=== PATIENT | male | born 1975 | race Caucasian/White ===

== ENCOUNTER 2019-10-30 12:48 | Emergency (ER) | payer MEDICAID, MEDICARE ==
[~2019-10-30] VITALS: Ht 190.6 cm; Wt 83.9 kg
[~2019-10-30 12:48] MED LIST: BACL10TA PO; CITA10TA70 PO; CYAN100T PO; QTP200T PO
--- NOTE | 2019-10-30 13:25 | NUR ---
This RN received report from ADARSH Corrales at this time
[2019-10-30] MEDS ORDERED: CEPHALEXIN 250 MG (KEFLEX) CAP PO ONE (13:30)
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
[2019-10-30] MEDS ORDERED: CEPH500T PO (13:35)
[2019-10-30] MEDS ORDERED: TRM50T PO (13:35)
--- NOTE | 2019-10-30 13:40 | NUR ---
Patient discharged at this time. No complaints at time of departure.
[2019-10-30 13:45] VITALS: BP 150/89
--- OUTSIDE RECORDS SUMMARY | 2019-10-30 14:25 | XMS REPORT | CCD ---
Author Author DELONTE LUJAN Organization Unknown Address [address] [place] [address] Care Team Providers Care Manager Contracting Name Role Phone ALICIA PALUMBO, DEV LE Attphys SAILAJA PALUMBO, AMARILYS Flemingsurchina A., REJI L NASST M., MALACHI NASST B., JOSE NASST S., ENEIDA NASST K., BETH NASST S., DOLORES Navarro NASST R., DAWSON NASST S., REJI NASST R., YASMIN Barbosa NASST A., KIRBY NOWAK NASST D., DONNY Briones NASST F., RADHA NASST D., KRISTIAN Keith NASST B., DA NASST W., SAMIRA NASST L., KATHIE NASST M., OCTAVIO NASST T., ANN NASST R., DAREN Lamb NASST G., JARROD NASST S., BRI Núñez NASST H., BEVERLY Grider NASST J., STEPHANIE NASST Clifford KECIA Diego NASST PolyDEXTER NASST Allergies Allergy Code Allergy Type Reaction Status WASP VENOM 0 Drug allergy ANGIOEDEMA A ctive BEE VENOM 0 Drug allergy ANGIOEDEMA Ac tive VANCOMYCIN 59852 Drug allergy RASH Activ e Active Medications Medication Code Dose Units Frequency Rou te Modification Start Date/Time flexeril 0 10 MILLIGRAMS THREE TIMES A D AY ORAL 08/17/2016 11:47 Prescription Detail 10 MILLIGRAMS ORAL THREE TI MES A DAY Magnesium Oxide 400MG Oral Tablet 788250 1 T ABLET THREE TIMES A DAY BY MOUTH 08/17/2016 11:46 Prescription Detail 1 TABLET BY MOUTH THREE KING ES A DAY ceFAZolin Sodium-Sodium Chloride 3GM-0.9% Intravenous Solution [id number] 3 GRAM EVERY 8 HOURS INJECTION 08/17/2016 11:45 Prescription Detail 3 GRAM INJECTION EVERY 8 HO URS Oxazepam 10MG Oral Capsule 206164 1 TABLET DAILY BY MOUTH 08/17/2016 11:44 Prescription Detail 1 TABLET BY MOUTH DAILY HYDROcodone bitartrate-acetaminophen 5MG-325MG Oral Tablet 504011 1 TABLET NEEDED EVERY 6 HR BY MOUTH 08/17/2016 11:43 Prescription Detail 1 TABLET BY MOUTH NEEDED EVERY 6 HR Protonix 40MG Oral Tablet, Enteric Coated 819959 40 MILLIGRAMS DAILY BY MOUTH 08/17/2016 11:43 Prescription Detail 40 MILLIGRAMS BY MOUTH GONZALEZ Y traZODone hydrochloride 50MG Oral Tablet 247010 1 TABLET DAILY BY MOUTH 08/17/2016 11:43 Prescription Detail 1 TABLET BY MOUTH DAILY Furosemide 10MG/1ML Injection Solution [id number] 40 MILLIGRAMS DAILY IVP 08/17/2016 11:42 Prescription Detail 40 MILLIGRAMS IVP DAILY Nicotine Transdermal System 14MG/24HR Transdermal Patc h, Extended Release 540515 14 MILLIGRAMS DAILY TOPICAL APPLICATION 08/17/2016 11:42 Prescription Detail 14 MILLIGRAMS TOPICAL APPLI CATION DAILY Problems Problem Code Start Date Resolved Date Sta tus Sepsis 85151049 08/07/2016 Active Endocarditis 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/07/2016 Act merline Procedures Procedure Code Procedure Type Date US VENOUS UPP OR LOW EXT BILATERAL 519670947 SNOMED CT 08/16/2016 CX LATERAL DECUB 03654076 SNOMED CT 7 CX CHEST [address] 7 US ECHO 2D COMP WITH DOPP AND COLOR 63367199 SNOMED CT 08/12/2016 CX CHEST [address] 08/09/2016 CTA CHEST W/WO CONTRAST 597281937 SNOMED CT CX CHEST [address] 08/09/2016 QUANTIFERON TB GOLD 50245042 SNOMED CT [address] 08/17/2016 RENAL FUNCTION PANEL 034739931 SNOMED CT 08/17 CBC W/ AUTO DIFF (RFLX MAN DIFF IF IND) 1613463 SN [facility] CT 08/17/2016 CULTURE BLOOD 96109523 SNOMED CT 08/16/2016 COMPREHENSIVE METABOLIC PANEL 556600332 SNOMED CT 08/16/2016 CBC W/ AUTO DIFF (RFLX MAN DIFF IF IND) 3641444 SN [facility] CT 08/16/2016 CBC W/ AUTO DIFF (RFLX MAN DIFF IF IND) 3364591 SN [facility] CT 08/14/[address] 08/14/[address] 08/15/2016 COMPREHENSIVE METABOLIC PANEL 295738818 SNOMED CT 08/15/2016 CBC W/ AUTO DIFF (RFLX MAN DIFF IF IND) 2074466 SN [facility]MED CT 08/15/[address] 08/14/2016 RETIC COUNT 11879526 SNOMED CT 08/14/2016 .BB COMPATIBILITY 510092826 SNOMED CT 08/15/19 [address] 08/14/2016 COMPREHENSIVE METABOLIC PANEL 608944687 SNOMED CT 08/14/2016 CBC W/ AUTO DIFF (RFLX MAN DIFF IF IND) 5477422 SN [facility] CT 08/14/2016 CBC W/ AUTO DIFF (RFLX MAN DIFF IF IND) 3138275 SN OMED CT 08/13/2016 CULTURE BLOOD 48076950 SNOMED CT 08/12/2016 CULTURE BLOOD 89115974 SNOMED CT 08/12/2016 CBC W/ AUTO DIFF (RFLX MAN DIFF IF IND) 9260964 SN [facility] CT 08/12/2016 PATHOLOGY ORDER 276271336 SNOMED CT 08/12/[address] 08/13/2016 COMPREHENSIVE METABOLIC PANEL 768209777 SNOMED CT 08/13/2016 CBC W/ AUTO DIFF (RFLX MAN DIFF IF IND) 0840203 SN [facility] CT 08/13/2016 RETIC COUNT 25211179 SNOMED CT 08/12/2016 TYPE AND CROSS 89286058 SNOMED CT 08/12/2016 OCCULT BLOOD iFOBT 800084982 SNOMED CT 2016 COMPREHENSIVE METABOLIC PANEL 493604722 SNOMED CT 08/12/2016 CBC W/ AUTO DIFF (RFLX MAN DIFF IF IND) 5597278 SN [facility]MED CT 08/12/2016 TYPE AND CROSS 55315330 SNOMED CT 08/11/2016 COMPREHENSIVE METABOLIC PANEL 881381149 SNOMED CT 08/11/2016 CBC W/ AUTO DIFF (RFLX MAN DIFF IF IND) 9937028 SN [facility] CT 08/11/2016 COMPREHENSIVE METABOLIC PANEL 915342463 SNOMED CT 08/10/2016 CBC W/ AUTO DIFF (RFLX MAN DIFF IF IND) 9878289 SN [facility] CT 08/10/2016 L[address]ID 3266945 [address] 08/08/2016 SED RATE 519465559 SNOMED CT 08/09/2016 C REACTIVE PROTEIN 14875006 SNOMED CT [address] 08/09/[address] 08/09/2016 COMPREHENSIVE METABOLIC PANEL 758564774 SNOMED CT 08/09/2016 CBC W/ AUTO DIFF (RFLX MAN DIFF IF IND) 5520625 SN [facility] CT 08/09/2016 RAPID DRUG SCREEN 609013543 SNOMED CT 08/09/19 17 LACTIC ACID 1611606 SNOMED CT 08/08/2016 COMPREHENSIVE METABOLIC PANEL 304827135 SNOMED CT 08/08/2016 CULTURE BLOOD 03164493 SNOMED CT 08/08/2016 CULTURE BLOOD 93187720 SNOMED CT 08/08/2016 CBC W/ AUTO DIFF (RFLX MAN DIFF IF IND) 1559691 SN OMED CT 08/08/2016 INCENTIVE SPIROMETRY EA [address] 08/13/2016 ^CULTURE AEROBIC ID 388773333 SNOMED CT 2016 ^SENSITIVITY 009165276 SNOMED CT 08/16/2016 ^CBC W/AUTO DIFF 0041063 SNOMED CT 7 ^CBC W/AUTO DIFF 5844750 SNOMED CT 7 ^CBC W/AUTO DIFF 3848324 SNOMED CT 7 ^CBC W/AUTO DIFF 1986045 SNOMED CT 7 .BB COMPAT EXM CHARGE ONLY 956466215 SNOMED CT 08/14/2016 .BB PRC 221641221 SNOMED CT 08/14/2016 ^CBC W/AUTO DIFF 5505669 SNOMED CT 7 ^CBC W/ MANUAL DIFF 78572230 SNOMED CT 2016 ^CBC W/AUTO DIFF 7504036 SNOMED CT 7 ^CBC W/ MANUAL DIFF 70333836 SNOMED CT 2016 SMEAR TO PATHOLOGIST 754509950 SNOMED CT 08/12 .BB COMPAT EXM CHARGE ONLY 654134368 SNOMED CT 08/12/2016 .BB PRC 418298141 SNOMED CT 08/12/2016 ^CBC W/AUTO DIFF 7758670 SNOMED CT 7 .BB COMPAT EXM CHARGE ONLY 711986406 SNOMED CT 08/11/2016 ^RHO D 121178522 SNOMED CT 08/11/2016 ^ABO TYPE 742091242 SNOMED CT 08/11/2016 ^NAIMA SCREEN 898546740 SNOMED CT 08/11/2016 .BB PRC 255022194 SNOMED CT 08/11/2016 ^CBC W/ MANUAL DIFF 77097300 SNOMED CT 2016 ^SENSITIVITY 135353118 SNOMED CT 08/08/2016 ^CULTURE AEROBIC ID 845649302 SNOMED CT 2016 ^CBC W/AUTO DIFF 2172950 SNOMED CT 7 ^CBC W/AUTO DIFF 7817735 SNOMED CT 7 ^CBC W/AUTO DIFF 5555380 SNOMED CT 7 BAN AERO ECLIPSE TREATMENT 05969123 SNOMED CT 08/17/2016 BAN AERO ECLIPSE TREATMENT 08230556 SNOMED CT 08/17/2016 BAN AERO ECLIPSE TREATMENT 28290612 SNOMED CT 08/17/2016 BAN AERO ECLIPSE TREATMENT 75481760 SNOMED CT 08/16/2016 BAN AERO ECLIPSE TREATMENT 90998685 SNOMED CT 08/16/2016 LOCM 300-349 MG/ML, PER ML 461197872 SNOMED CT 08/09/2016 BAN AERO ECLIPSE TREATMENT 54505127 SNOMED CT 08/15/2016 BAN AERO ECLIPSE TREATMENT 79357663 SNOMED CT 08/15/2016 BAN AERO ECLIPSE TREATMENT 88147584 SNOMED CT 08/15/2016 BAN AERO ECLIPSE TREATMENT 32959848 SNOMED CT 08/15/2016 BAN AERO ECLIPSE TREATMENT 56422301 SNOMED CT 08/14/2016 BAN AERO ECLIPSE TREATMENT 98266022 SNOMED CT 08/14/2016 BAN AERO ECLIPSE TREATMENT 59368504 SNOMED CT 08/14/2016 BAN AERO ECLIPSE TREATMENT 62308543 SNOMED CT 08/14/2016 BAN AERO ECLIPSE TREATMENT 14265069 SNOMED CT 08/13/2016 BAN AERO ECLIPSE TREATMENT 11935249 SNOMED CT 08/13/2016 BAN AERO ECLIPSE TREATMENT 04706171 SNOMED CT 08/13/2016 BAN AERO ECLIPSE TREATMENT 85857412 SNOMED CT 08/13/2016 BAN AERO ECLIPSE TREATMENT 49053683 SNOMED CT 08/12/2016 BAN AERO ECLIPSE TREATMENT 75424613 SNOMED CT 08/12/2016 BAN AERO ECLIPSE TREATMENT 13279680 SNOMED CT 08/11/2016 BAN AERO ECLIPSE TREATMENT 10467285 SNOMED CT 08/11/2016 BAN AERO ECLIPSE TREATMENT 71606895 SNOMED CT 08/11/2016 BAN AERO ECLIPSE TREATMENT 38979202 SNOMED CT 08/10/2016 BAN AERO ECLIPSE TREATMENT 05182764 SNOMED CT 08/10/2016 BAN AERO ECLIPSE TREATMENT 80925665 SNOMED CT 08/10/2016 BAN AERO ECLIPSE TREATMENT 56627543 SNOMED CT 08/10/2016 BAN AERO ECLIPSE TREATMENT 15623420 SNOMED CT 08/09/2016 BAN AERO ECLIPSE TREATMENT 88488146 SNOMED CT 08/09/2016 BAN AERO ECLIPSE TREATMENT 32078879 SNOMED CT 08/09/2016 BAN AERO ECLIPSE TREATMENT 01352057 SNOMED CT 08/08/2016 Results COMPREHENSIVE METABOLIC PANEL - Collect Date/Time: 08/16/2016 08:10 Test Name Code Test Result Test Units Aurea t Ref Range GLUCOSE 2345-7 109 MG/DL L=70 H=1 00 SODIUM 2951-2 138 MEQ/L L=135 H=14 8 POTASSIUM 2823-3 5.1 MEQ/L L=3.5 H =5.3 CHLORIDE 2075-0 102 MEQ/L L=96 H= 110 CO2 2028-9 23 MEQ/L L=22 H=29 BUN 3094-0 14 MG/DL L=8 H=22 CREATININE 2160-0 0.9 MG/DL L=0.6 H=1.6 SGOT/AST 1920-8 13 IU/L L=10 H= 40 SGPT/ALT 1742-6 <6 IU/L L=8 H= 54 ALK PHOS 6768-6 209 IU/L L=35 H= 115 TOTAL PROTEIN 2885-2 7.0 G/DL L=5.5 H=8.5 ALBUMIN 1751-7 3.3 G/DL L=3.1 H=5 .4 TOTAL BILI 1975-2 0.4 MG/DL L=0.0 H=1.5 CALCIUM 52961-8 9.1 MG/DL L=8.2 H= 10.6 AGE 7[birth year]90-1 40 yrs GFR NonAA 61520-8 93 GFR AA 58784-8 113 eGFR 36252-4 >60 N/A eGFR AA* 43364-8 >60 N/A COMPREHENSIVE METABOLIC PANEL - Collect Date/Time: 08/15/2016 06:10 Test Name Code Test Result Test Units Aurea t Ref Range GLUCOSE 2345-7 110 MG/DL L=70 H=1 00 SODIUM 2951-2 138 MEQ/L L=135 H=14 8 POTASSIUM 2823-3 4.3 MEQ/L L=3.5 H =5.3 CHLORIDE 2075-0 102 MEQ/L L=96 H= 110 CO2 2028-9 25 MEQ/L L=22 H=29 BUN 3094-0 15 MG/DL L=8 H=22 CREATININE 2160-0 0.8 MG/DL L=0.6 H=1.6 SGOT/AST 1920-8 16 IU/L L=10 H= 40 SGPT/ALT 1742-6 6 IU/L L=8 H= 54 ALK PHOS 6768-6 211 IU/L L=35 H= 115 TOTAL PROTEIN 2885-2 6.4 G/DL L=5.5 H=8.5 ALBUMIN 1751-7 3.0 G/DL L=3.1 H=5 .4 TOTAL BILI 1975-2 0.5 MG/DL L=0.0 H=1.5 CALCIUM 26202-5 8.6 MG/DL L=8.2 H= 10.6 AGE 49964-7 40 yrs GFR NonAA 68611-4 107 GFR AA 06363-4 130 eGFR 01394-8 >60 N/A eGFR AA* 61470-1 >60 N/A COMPREHENSIVE METABOLIC PANEL - Collect Date/Time: 08/14/2016 05:50 Test Name Code Test Result Test Units Aurea t Ref Range GLUCOSE 2345-7 87 MG/DL L=70 H=1 00 SODIUM 2951-2 140 MEQ/L L=135 H=14 8 POTASSIUM 2823-3 4.0 MEQ/L L=3.5 H =5.3 CHLORIDE 2075-0 105 MEQ/L L=96 H= 110 CO2 2028-9 23 MEQ/L L=22 H=29 BUN 3094-0 16 MG/DL L=8 H=22 CREATININE 2160-0 0.8 MG/DL L=0.6 H=1.6 SGOT/AST 1920-8 13 IU/L L=10 H= 40 SGPT/ALT 1742-6 8 IU/L L=8 H= 54 ALK PHOS 6768-6 229 IU/L L=35 H= 115 TOTAL PROTEIN 2885-2 6.3 G/DL L=5.5 H=8.5 ALBUMIN 1751-7 3.0 G/DL L=3.1 H=5 .4 TOTAL BILI 1975-2 0.4 MG/DL L=0.0 H=1.5 CALCIUM 06384-7 8.5 MG/DL L=8.2 H= 10.6 AGE 9[address]08-6 40 yrs GFR NonAA 27419-2 107 GFR AA 29902-3 130 eGFR 06583-7 >60 N/A eGFR AA* 45947-0 >60 N/A COMPREHENSIVE METABOLIC PANEL - Collect Date/Time: 08/13/2016 06:20 Test Name Code Test Result Test Units Aurea t Ref Range GLUCOSE 2345-7 91 MG/DL L=70 H=1 00 SODIUM 2951-2 140 MEQ/L L=135 H=14 8 POTASSIUM 2823-3 4.6 MEQ/L L=3.5 H =5.3 CHLORIDE 2075-0 106 MEQ/L L=96 H= 110 CO2 2028-9 22 MEQ/L L=22 H=29 BUN 3094-0 13 MG/DL L=8 H=22 CREATININE 2160-0 0.8 MG/DL L=0.6 H=1.6 SGOT/AST 1920-8 19 IU/L L=10 H= 40 SGPT/ALT 1742-6 11 IU/L L=8 H= 54 ALK PHOS 6768-6 226 IU/L L=35 H= 115 TOTAL PROTEIN 2885-2 6.5 G/DL L=5.5 H=8.5 ALBUMIN 1751-7 3.1 G/DL L=3.1 H=5 .4 TOTAL BILI 1975-2 0.6 MG/DL L=0.0 H=1.5 CALCIUM 60525-4 8.6 MG/DL L=8.2 H= 10.6 AGE 78234-9 40 yrs GFR NonAA 06744-6 107 [place] 66201-8 130 eGFR 24085-2 >60 N/A eGFR AA* 50068-8 >60 N/A COMPREHENSIVE METABOLIC PANEL - Collect Date/Time: 08/12/2016 06:15 Test Name Code Test Result Test Units Aurea t Ref Range GLUCOSE 2345-7 106 MG/DL L=70 H=1 00 SODIUM 2951-2 140 MEQ/L L=135 H=14 8 POTASSIUM 2823-3 3.9 MEQ/L L=3.5 H =5.3 CHLORIDE 2075-0 108 MEQ/L L=96 H= 110 CO2 2028-9 24 MEQ/L L=22 H=29 BUN 3094-0 12 MG/DL L=8 H=22 CREATININE 2160-0 0.8 MG/DL L=0.6 H=1.6 SGOT/AST 1920-8 23 IU/L L=10 H= 40 SGPT/ALT 1742-6 16 IU/L L=8 H= 54 ALK PHOS 6768-6 204 IU/L L=35 H= 115 TOTAL PROTEIN 2885-2 5.7 G/DL L=5.5 H=8.5 ALBUMIN 1751-7 2.8 G/DL L=3.1 H=5 .4 TOTAL BILI 1975-2 0.5 MG/DL L=0.0 H=1.5 CALCIUM 05653-2 8.3 MG/DL L=8.2 H= 10.6 AGE 56226-9 40 yrs GFR NonAA 95837-9 107 GFR AA 05433-2 130 eGFR 37874-2 >60 N/A eGFR AA* 40697-9 >60 N/A COMPREHENSIVE METABOLIC PANEL - Collect Date/Time: 08/11/2016 06:45 Test Name Code Test Result Test Units Aurea t Ref Range GLUCOSE 2345-7 99 MG/DL L=70 H=1 00 SODIUM 2951-2 139 MEQ/L L=135 H=14 8 POTASSIUM 2823-3 4.5 MEQ/L L=3.5 H =5.3 CHLORIDE 2075-0 107 MEQ/L L=96 H= 110 CO2 2028-9 21 MEQ/L L=22 H=29 BUN 3094-0 10 MG/DL L=8 H=22 CREATININE 2160-0 0.8 MG/DL L=0.6 H=1.6 SGOT/AST 1920-8 36 IU/L L=10 H= 40 SGPT/ALT 1742-6 22 IU/L L=8 H= 54 ALK PHOS 6768-6 172 IU/L L=35 H= 115 TOTAL PROTEIN 2885-2 6.2 G/DL L=5.5 H=8.5 ALBUMIN 1751-7 3.0 G/DL L=3.1 H=5 .4 TOTAL BILI 1975-2 0.5 MG/DL L=0.0 H=1.5 CALCIUM 95447-5 8.4 MG/DL L=8.2 H= 10.6 AGE 01208-6 40 yrs GFR NonAA 37745-5 107 GFR AA 23945-1 130 eGFR 78284-2 >60 N/A eGFR AA* 65725-8 >60 N/A COMPREHENSIVE METABOLIC PANEL - Collect Date/Time: 08/10/2016 06:10 Test Name Code Test Result Test Units Aurea t Ref Range GLUCOSE 2345-7 108 MG/DL L=70 H=1 00 SODIUM 2951-2 138 MEQ/L L=135 H=14 8 POTASSIUM 2823-3 4.0 MEQ/L L=3.5 H =5.3 CHLORIDE 2075-0 105 MEQ/L L=96 H= 110 CO2 2028-9 24 MEQ/L L=22 H=29 BUN 3094-0 11 MG/DL L=8 H=22 CREATININE 2160-0 0.8 MG/DL L=0.6 H=1.6 SGOT/AST 1920-8 38 IU/L L=10 H= 40 SGPT/ALT 1742-6 23 IU/L L=8 H= 54 ALK PHOS 6768-6 136 IU/L L=35 H= 115 TOTAL PROTEIN 2885-2 6.3 G/DL L=5.5 H=8.5 ALBUMIN 1751-7 3.1 G/DL L=3.1 H=5 .4 TOTAL BILI 1975-2 0.5 MG/DL L=0.0 H=1.5 CALCIUM 17054-8 8.7 MG/DL L=8.2 H= 10.6 AGE 0[address]92-7 40 yrs GFR NonAA 44950-4 107 [place]FR AA 52767-3 130 eGFR 13565-0 >60 N/A eGFR AA* 08315-7 >60 N/A COMPREHENSIVE METABOLIC PANEL - Collect Date/Time: 08/09/2016 13:55 Test Name Code Test Result Test Units Aurea t Ref Range GLUCOSE 2345-7 111 MG/DL L=70 H=1 00 SODIUM 2951-2 138 MEQ/L L=135 H=14 8 POTASSIUM 2823-3 3.9 MEQ/L L=3.5 H =5.3 CHLORIDE 2075-0 102 MEQ/L L=96 H= 110 CO2 2028-9 23 MEQ/L L=22 H=29 BUN 3094-0 12 MG/DL L=8 H=22 CREATININE 2160-0 0.8 MG/DL L=0.6 H=1.6 SGOT/AST 1920-8 27 IU/L L=10 H= 40 SGPT/ALT 1742-6 16 IU/L L=8 H= 54 ALK PHOS 6768-6 105 IU/L L=35 H= 115 TOTAL PROTEIN 2885-2 6.6 G/DL L=5.5 H=8.5 ALBUMIN 1751-7 3.3 G/DL L=3.1 H=5 .4 TOTAL BILI 1975-2 1.1 MG/DL L=0.0 H=1.5 CALCIUM 39654-8 8.6 MG/DL L=8.2 H= 10.6 AGE 63257-6 40 yrs GFR NonAA 15988-2 107 [place]FR AA 58669-4 130 eGFR 04135-3 >60 N/A eGFR AA* 49169-0 >60 N/A COMPREHENSIVE METABOLIC PANEL - Collect Date/Time: 08/08/2016 06:00 Test Name Code Test Result Test Units Aurea t Ref Range GLUCOSE 2345-7 113 MG/DL L=70 H=1 00 SODIUM 2951-2 135 MEQ/L L=135 H=14 8 POTASSIUM 2823-3 4.4 MEQ/L L=3.5 H =5.3 CHLORIDE 2075-0 100 MEQ/L L=96 H= 110 CO2 2028-9 19 MEQ/L L=22 H=29 BUN 3094-0 19 MG/DL L=8 H=22 CREATININE 2160-0 0.9 MG/DL L=0.6 H=1.6 SGOT/AST 1920-8 19 IU/L L=10 H= 40 SGPT/ALT 1742-6 8 IU/L L=8 H= 54 ALK PHOS 6768-6 87 IU/L L=35 H= 115 TOTAL PROTEIN 2885-2 7.7 G/DL L=5.5 H=8.5 ALBUMIN 1751-7 3.6 G/DL L=3.1 H=5 .4 TOTAL BILI 1975-2 1.8 MG/DL L=0.0 H=1.5 CALCIUM 84070-5 8.5 MG/DL L=8.2 H= 10.6 AGE 40 yrs GFR NonAA 93 GFR AA 113 eGFR >60 N/A eGFR AA* >60 N/A LIPASE - Collect Date/Time: 08/14/2016 0 5:50 Test Name Code Test Result Test Units Aurea t Ref Range LIPASE 3040-3 10 U/L L=8 H=78 MAGNESIUM - Collect Date/Time: 7 05:45 Test Name Code Test Result Test Units Aurea t Ref Range MAGNESIUM 68782-0 1.8 MG/DL L=1.7 H=2.8 MAGNESIUM - Collect Date/Time: 7 06:10 Test Name Code Test Result Test Units Aurea t Ref Range MAGNESIUM 64263-9 1.9 MG/DL L=1.7 H=2.8 MAGNESIUM - Collect Date/Time: 7 05:50 Test Name Code Test Result Test Units Aurea t Ref Range MAGNESIUM 58056-4 1.8 MG/DL L=1.7 H=2.8 MAGNESIUM - Collect Date/Time: 7 06:20 Test Name Code Test Result Test Units Aurea t Ref Range MAGNESIUM 79221-3 1.6 MG/DL L=1.7 H=2.8 MAGNESIUM - Collect Date/Time: 7 13:55 Test Name Code Test Result Test Units Aurea t Ref Range MAGNESIUM 66021-7 1.7 MG/DL L=1.7 H=2.8 PHOSPHORUS - Collect Date/Time: 08/10/19 17 13:55 Test Name Code Test Result Test Units Aurea t Ref Range PHOSPHORUS 2777-1 3.0 MG/DL L=2.5 H=4.5 RENAL FUNCTION PANEL - Collect Date/Time : 08/17/2016 05:45 Test Name Code Test Result Test Units Aurea t Ref Range GLUCOSE 2345-7 99 MG/DL L=70 H=1 00 SODIUM 2951-2 139 MEQ/L L=135 H=14 8 POTASSIUM 2823-3 4.4 MEQ/L L=3.5 H =5.3 CHLORIDE 2075-0 102 MEQ/L L=96 H= 110 CO2 2028-9 26 MEQ/L L=22 H=29 BUN 3094-0 14 MG/DL L=8 H=22 CREATININE 2160-0 0.7 MG/DL L=0.6 H=1.6 ALBUMIN 1751-7 2.9 G/DL L=3.1 H=5 .4 CALCIUM 83381-6 8.5 MG/DL L=8.2 H= 10.6 PHOSPHORUS 2777-1 3.6 MG/DL L=2.5 H=4.5 AGE 8[address]37-1 40 yrs GFR NonAA 54173-4 124 GFR AA 14267-6 150 eGFR 63393-2 >60 N/A eGFR AA* 48381-8 >60 N/A RAPID DRUG SCREEN - Collect Date/Time: 0 08/08/2016 09:45 Test Name Code Test Result Test Units Aurea t Ref Range Cannabinoids (THC) 86538-9 NEGATIVE N/A NEG: < 50 ng/ml Phencyclidine (PCP) 40440-2 NEGATIVE N/A NEG: < 25 ng/ml Cocaine 22524-1 NEGATIVE N/A NEG: < 300 ng/ml Methamphetamine 17771-2 NEGATIVE N/A NEG : < 1000 ng/ml Opiates 37029-2 NEGATIVE N/A NEG: < 300 ng/ml Amphetamine 48374-0 NEGATIVE N/A NEG: < 1000 ng/ml Benzodiazepines 05768-8 NEGATIVE N/A NEG : < 300 ng/ml Tricyclic Antidepres 09953-2 NEGATIVE N/A NEG: < 300 ng/ml Methadone 56260-3 NEGATIVE N/A NEG: < 3 00 ng/ml Barbiturates 24156-0 NEGATIVE N/A NEG: < 200 ng/ml Oxycodone 40787-7 NON-NEGATIVE N/A NEG: < 100 ng/ml Propoxyphene (PPX) 28921-6 NEGATIVE N/A NEG: < 300 ng/ml CBC W/ AUTO DIFF (RFLX MAN DIFF IF IND) - Collect Date/Time: 08/17/2016 05:45 Test Name Code Test Result Test Units Aurea t Ref Range WBC 26990-3 6.7 TH/CMM L=4.5 H=1 0.8 RBC 789-8 3.02 ML/CMM L=4.70 H=6. 10 HGB 718-7 7.9 G/DL L=14.0 H=18 .0 HCT 4544-3 25.3 % L=42.0 H=52 .0 MCV 19417-1 84 FL L=81 H=9 9 MCH 85156-9 26.2 PG L=27.0 H=3 3.0 MCHC 82908-5 31.2 G/DL L=31.0 H=3 6[place]0 [place] [address]-4 58 FL L=36 H=5 0 [place] [address]-7 19.3 % L=0.0 H=1 4.8 MPV 68442-3 8.5 FL L=9.3 H=1 2.5 PLT 777-3 348 TH/CMM L=130 H=44 0 NRBC# 75432-7 0.00 TH/CMM L=0.00 H=0 .00 NRBC% 90444-0 0.0 /100WBC L=0.0 H= 2.0 %NEUT 20257-0 68.6 % %LYMP 81021-6 21.0 % %MONO 16269-0 7.6 % %EOS 41881-5 1.8 % %BASO 22851-3 0.1 % #NEUT 11076-8 4.57 TH/CMM L=2.10 H=8 .20 #LYMP 69402-9 1.40 TH/CMM L=0.90 H=5 .20 #MONO 59344-0 0.51 TH/CMM L=0.16 H=1 .00 #EOS 07940-9 0.12 TH/CMM L=0.00 H=0 .80 #BASO 23625-9 0.01 TH/CMM L=0.00 H=0 .20 MANUAL DIFF 87441-6 NOT IND N/A CBC W/ AUTO DIFF (RFLX MAN DIFF IF IND) - Collect Date/Time: 08/16/2016 08:10 Test Name Code Test Result Test Units Aurea t Ref Range WBC 11632-3 11.8 TH/CMM L=4.5 H=1 0.8 RBC 789-8 3.74 ML/CMM L=4.70 H=6. 10 HGB 718-7 9.5 G/DL L=14.0 H=18 .0 HCT 4544-3 31.5 % L=42.0 H=52 .0 MCV 12868-0 84 FL L=81 H=9 9 MCH 32275-9 25.4 PG L=27.0 H=3 3.0 MCHC 53278-6 30.2 G/DL L=31.0 H=3 6.0 [place] [address]-3 59 FL L=36 H=5 0 [place] [address]-3 19.3 % L=0.0 H=1 4.8 MPV 88058-8 9.3 FL L=9.3 H=1 2.5 PLT 777-3 499 TH/CMM L=130 H=44 0 NRBC# 43726-8 0.00 TH/CMM L=0.00 H=0 .00 NRBC% 94459-3 0.0 /100WBC L=0.0 H= 2.0 %NEUT 61605-5 84.5 % %LYMP 47515-5 10.5 % %MONO 98087-9 2.9 % %EOS 63014-1 1.0 % %BASO 91748-8 0.2 % #NEUT 61330-9 9.94 TH/CMM L=2.10 H=8 .20 #LYMP 02268-4 1.23 TH/CMM L=0.90 H=5 .20 #MONO 74817-1 0.34 TH/CMM L=0.16 H=1 .00 #EOS 13806-1 0.12 TH/CMM L=0.00 H=0 .80 #BASO 48803-8 0.02 TH/CMM L=0.00 H=0 .20 MANUAL DIFF 29138-3 NOT IND N/A CBC W/ AUTO DIFF (RFLX MAN DIFF IF IND) - Collect Date/Time: 08/15/2016 06:10 Test Name Code Test Result Test Units Aurea t Ref Range WBC 41477-2 8.0 TH/CMM L=4.5 H=1 0.8 RBC 789-8 3.35 ML/CMM L=4.70 H=6. 10 HGB 718-7 8.5 G/DL L=14.0 H=18 .0 HCT 4544-3 27.7 % L=42.0 H=52 .0 MCV 02311-8 83 FL L=81 H=9 9 MCH 25502-8 25.4 PG L=27.0 H=3 3.0 MCHC 44799-6 30.7 G/DL L=31.0 H=3 6.0 [place] [address]-9 57 FL L=36 H=5 0 [place] [address]-0 19.1 % L=0.0 H=1 4.8 MPV 79008-6 8.8 FL L=9.3 H=1 2.5 PLT 777-3 477 TH/CMM L=130 H=44 0 NRBC# 95512-7 0.00 TH/CMM L=0.00 H=0 .00 NRBC% 68065-7 0.0 /100WBC L=0.0 H= 2.0 %NEUT 03758-1 71.6 % %LYMP 77801-5 19.5 % %MONO 63656-3 6.0 % %EOS 04461-8 1.6 % %BASO 38029-9 0.4 % #NEUT 75943-2 5.72 TH/CMM L=2.10 H=8 .20 #LYMP 10362-3 1.56 TH/CMM L=0.90 H=5 .20 #MONO 09721-6 0.48 TH/CMM L=0.16 H=1 .00 #EOS 92980-8 0.13 TH/CMM L=0.00 H=0 .80 #BASO 76418-3 0.03 TH/CMM L=0.00 H=0 .20 MANUAL DIFF 67280-5 NOT IND N/A CBC W/ AUTO DIFF (RFLX MAN DIFF IF IND) - Collect Date/Time: 08/14/2016 17:00 Test Name Code Test Result Test Units Aurea t Ref Range WBC 03328-0 9.2 TH/CMM L=4.5 H=1 0.8 RBC 789-8 3.33 ML/CMM L=4.70 H=6. 10 HGB 718-7 8.5 G/DL L=14.0 H=18 .0 HCT 4544-3 27.7 % L=42.0 H=52 .0 MCV 20293-0 83 FL L=81 H=9 9 MCH 79853-1 25.5 PG L=27.0 H=3 3.0 MCHC 07339-6 30.7 G/DL L=31.0 H=3 6.0 [place] [address]-9 57 FL L=36 H=5 0 [place] [address]-9 18.6 % L=0.0 H=1 4.8 MPV 68194-7 9.0 FL L=9.3 H=1 2.5 PLT 777-3 435 TH/CMM L=130 H=44 0 NRBC# 51285-3 0.00 TH/CMM L=0.00 H=0 .00 NRBC% 17028-4 0.0 /100WBC L=0.0 H= 2.0 %NEUT 85707-6 69.7 % %LYMP 87142-0 20.5 % %MONO 31318-2 7.3 % %EOS 70189-8 1.5 % %BASO 12723-1 0.3 % #NEUT 75623-5 6.40 TH/CMM L=2.10 H=8 .20 #LYMP 96672-1 1.88 TH/CMM L=0.90 H=5 .20 #MONO 56930-9 0.67 TH/CMM L=0.16 H=1 .00 #EOS 45077-3 0.14 TH/CMM L=0.00 H=0 .80 #BASO 01612-7 0.03 TH/CMM L=0.00 H=0 .20 MANUAL DIFF 42938-4 NOT IND N/A CBC W/ AUTO DIFF (RFLX MAN DIFF IF IND) - Collect Date/Time: 08/14/2016 05:50 Test Name Code Test Result Test Units Aurea t Ref Range WBC 12812-8 8.7 TH/CMM L=4.5 H=1 0.8 RBC 789-8 2.95 ML/CMM L=4.70 H=6. 10 HGB 718-7 7.5 G/DL L=14.0 H=18 .0 HCT 4544-3 24.7 % L=42.0 H=52 .0 MCV 96021-4 84 FL L=81 H=9 9 MCH 88143-8 25.4 PG L=27.0 H=3 3.0 MCHC 18133-9 30.4 G/DL L=31.0 H=3 6.0 [place] [address]-1 57 FL L=36 H=5 0 [place] [address]-5 19.1 % L=0.0 H=1 4.8 MPV 95613-1 9.2 FL L=9.3 H=1 2.5 PLT 777-3 459 TH/CMM L=130 H=44 0 NRBC# 19799-7 0.00 TH/CMM L=0.00 H=0 .00 NRBC% 91355-3 0.0 /100WBC L=0.0 H= 2.0 %NEUT 46168-0 72.3 % %LYMP 35598-5 17.0 % %MONO 97497-3 8.1 % %EOS 41388-4 1.5 % %BASO 62657-8 0.3 % #NEUT 27815-1 6.25 TH/CMM L=2.10 H=8 .20 #LYMP 29893-6 1.47 TH/CMM L=0.90 H=5 .20 #MONO 99434-9 0.70 TH/CMM L=0.16 H=1 .00 #EOS 23934-8 0.13 TH/CMM L=0.00 H=0 .80 #BASO 42483-8 0.03 TH/CMM L=0.00 H=0 .20 MANUAL DIFF 28597-5 NOT IND N/A CBC W/ AUTO DIFF (RFLX MAN DIFF IF IND) - Collect Date/Time: 08/13/2016 15:57 Test Name Code Test Result Test Units Aurea t Ref Range WBC 76838-3 8.5 TH/CMM L=4.5 H=1 0.8 RBC 789-8 3.11 ML/CMM L=4.70 H=6. 10 HGB 718-7 7.7 G/DL L=14.0 H=18 .0 HCT 4544-3 25.6 % L=42.0 H=52 .0 MCV 12914-1 82 FL L=81 H=9 9 MCH 52647-9 24.8 PG L=27.0 H=3 3.0 MCHC 12427-2 30.1 G/DL L=31.0 H=3 6.0 [place] [address]-4 56 FL L=36 H=5 0 [place] 01083-3 18.7 % L=0.0 H=1 4.8 MPV 06772-7 9.1 FL L=9.3 H=1 2.5 PLT 777-3 421 TH/CMM L=130 H=44 0 NRBC# 05787-9 0.00 TH/CMM L=0.00 H=0 .00 NRBC% 80275-4 0.0 /100WBC L=0.0 H= 2.0 %NEUT 13123-6 68.9 % %LYMP 40091-5 19.2 % %MONO 86989-9 8.8 % %EOS 11920-9 1.9 % %BASO 37460-9 0.4 % #NEUT 82426-0 5.88 TH/CMM L=2.10 H=8 .20 #LYMP 90821-0 1.64 TH/CMM L=0.90 H=5 .20 #MONO 49267-8 0.75 TH/CMM L=0.16 H=1 .00 #EOS 89016-5 0.16 TH/CMM L=0.00 H=0 .80 #BASO 31842-4 0.03 TH/CMM L=0.00 H=0 .20 SEGS 14060-5 65 % BANDS 17578-2 6 % LYMPHS 98993-7 28 % EOS 17182-6 1 % MANUAL DIFF 27095-1 SEE BELOW N/A MICRO 69843-8 1+ N/A MACRO 47697-3 1+ N/A ANISO 84406-8 2+ N/A HYPO 72061-6 2+ N/A POLYCHROMASIA 74506-5 1+ N/A CBC W/ AUTO DIFF (RFLX MAN DIFF IF IND) - Collect Date/Time: 08/13/2016 06:20 Test Name Code Test Result Test Units Aurea t Ref Range WBC 51336-2 8.7 TH/CMM L=4.5 H=1 0.8 RBC 789-8 3.14 ML/CMM L=4.70 H=6. 10 HGB 718-7 7.9 G/DL L=14.0 H=18 .0 HCT 4544-3 26.0 % L=42.0 H=52 .0 MCV 02130-1 83 FL L=81 H=9 9 MCH 95950-6 25.2 PG L=27.0 H=3 3.0 MCHC 33262-9 30.4 G/DL L=31.0 H=3 6.0 [place] [address]-3 56 FL L=36 H=5 0 [place] 71734-6 18.8 % L=0.0 H=1 4.8 MPV 30797-6 9.7 FL L=9.3 H=1 2.5 PLT 777-3 384 TH/CMM L=130 H=44 0 NRBC# 23387-4 0.00 TH/CMM L=0.00 H=0 .00 NRBC% 66514-2 0.0 /100WBC L=0.0 H= 2.0 %NEUT 35852-3 67.6 % %LYMP 08916-1 21.3 % %MONO 19340-3 8.2 % %EOS 04790-4 1.6 % %BASO 77920-6 0.5 % #NEUT 65891-1 5.89 TH/CMM L=2.10 H=8 .20 #LYMP 28390-7 1.85 TH/CMM L=0.90 H=5 .20 #MONO 79916-9 0.71 TH/CMM L=0.16 H=1 .00 #EOS 44890-1 0.14 TH/CMM L=0.00 H=0 .80 #BASO 50691-4 0.04 TH/CMM L=0.00 H=0 .20 MANUAL DIFF 66073-0 NOT IND N/A CBC W/ AUTO DIFF (RFLX MAN DIFF IF IND) - Collect Date/Time: 08/12/2016 17:15 Test Name Code Test Result Test Units Aurea t Ref Range WBC 35135-6 9.3 TH/CMM L=4.5 H=1 0.8 RBC 789-8 3.09 ML/CMM L=4.70 H=6. 10 HGB 718-7 8.0 G/DL L=14.0 H=18 .0 HCT 4544-3 25.3 % L=42.0 H=52 .0 MCV 70696-3 82 FL L=81 H=9 9 MCH 27008-0 25.9 PG L=27.0 H=3 3.0 MCHC 07393-1 31.6 G/DL L=31.0 H=3 6.0 [place] [address]-7 54 FL L=36 H=5 0 [place] [address]-9 18.3 % L=0.0 H=1 4.8 MPV 89700-8 9.6 FL L=9.3 H=1 2.5 PLT 777-3 370 TH/CMM L=130 H=44 0 NRBC# 18909-4 0.00 TH/CMM L=0.00 H=0 .00 NRBC% 59108-4 0.0 /100WBC L=0.0 H= 2.0 %NEUT 94382-6 69.0 % %LYMP 28440-1 21.2 % %MONO 52351-9 7.4 % %EOS 68594-9 1.6 % %BASO 42635-1 0.3 % #NEUT 37483-1 6.39 TH/CMM L=2.10 H=8 .20 #LYMP 96190-7 1.97 TH/CMM L=0.90 H=5 .20 #MONO 23955-7 0.69 TH/CMM L=0.16 H=1 .00 #EOS 29042-4 0.15 TH/CMM L=0.00 H=0 .80 #BASO 93835-9 0.03 TH/CMM L=0.00 H=0 .20 SEGS 86001-9 66 % BANDS 91409-3 1 % LYMPHS 08458-8 26 % MONOS 49771-7 5 % EOS 22980-8 1 % METAS 67729-4 1 % MANUAL DIFF 03526-6 SEE BELOW N/A CBC W/ AUTO DIFF (RFLX MAN DIFF IF IND) - Collect Date/Time: 08/12/2016 06:15 Test Name Code Test Result Test Units Aurea t Ref Range WBC 22525-9 8.2 TH/CMM L=4.5 H=1 0.8 RBC 789-8 2.82 ML/CMM L=4.70 H=6. 10 HGB 718-7 7.3 G/DL L=14.0 H=18 .0 HCT 4544-3 22.8 % L=42.0 H=52 .0 MCV 16345-1 81 FL L=81 H=9 9 MCH 41773-6 25.9 PG L=27.0 H=3 3.0 MCHC 93409-4 32.0 G/DL L=31.0 H=3 6[place]0 [place] [address]-2 54 FL L=36 H=5 0 [place] [address]-9 18.4 % L=0.0 H=1 4.8 MPV 72245-5 9.7 FL L=9.3 H=1 2.5 PLT 777-3 332 TH/CMM L=130 H=44 0 NRBC# 11698-8 0.00 TH/CMM L=0.00 H=0 .00 NRBC% 55448-3 0.0 /100WBC L=0.0 H= 2.0 %NEUT 80877-3 69.4 % %LYMP 93428-8 19.3 % %MONO 99075-8 8.5 % %EOS 28612-0 1.6 % %BASO 02710-5 0.6 % #NEUT 83015-2 5.71 TH/CMM L=2.10 H=8 .20 #LYMP 06329-4 1.59 TH/CMM L=0.90 H=5 .20 #MONO 85954-9 0.70 TH/CMM L=0.16 H=1 .00 #EOS 06156-2 0.13 TH/CMM L=0.00 H=0 .80 #BASO 65150-3 0.05 TH/CMM L=0.00 H=0 .20 MANUAL DIFF 64497-1 NOT IND N/A CBC W/ AUTO DIFF (RFLX MAN DIFF IF IND) - Collect Date/Time: 08/11/2016 06:45 Test Name Code Test Result Test Units Aurea t Ref Range WBC 05339-6 8.6 TH/CMM L=4.5 H=1 0.8 RBC 789-8 2.80 ML/CMM L=4.70 H=6. 10 HGB 718-7 7.0 G/DL L=14.0 H=18 .0 HCT 4544-3 22.5 % L=42.0 H=52 .0 MCV 22248-7 80 FL L=81 H=9 9 MCH 98832-2 25.0 PG L=27.0 H=3 3.0 MCHC 09410-6 31.1 G/DL L=31.0 H=3 6[place]0 [place] [address]-8 53 FL L=36 H=5 0 [place] [address]-6 17.8 % L=0.0 H=1 4.8 MPV 75192-4 9.6 FL L=9.3 H=1 2.5 PLT 777-3 255 TH/CMM L=130 H=44 0 NRBC# 65350-5 0.00 TH/CMM L=0.00 H=0 .00 NRBC% 78427-0 0.0 /100WBC L=0.0 H= 2.0 %NEUT 76400-4 69.9 % %LYMP 76349-9 19.7 % %MONO 37471-7 7.9 % %EOS 35729-4 1.5 % %BASO 41747-2 0.5 % #NEUT 13928-8 6.04 TH/CMM L=2.10 H=8 .20 #LYMP 24523-7 1.70 TH/CMM L=0.90 H=5 .20 #MONO 89384-1 0.68 TH/CMM L=0.16 H=1 .00 #EOS 89578-0 0.13 TH/CMM L=0.00 H=0 .80 #BASO 71642-0 0.04 TH/CMM L=0.00 H=0 .20 SEGS 73404-3 72 % BANDS 69615-4 3 % LYMPHS 20870-9 18 % MONOS 92776-9 6 % BASO 35862-8 1 % MANUAL DIFF 07347-1 SEE BELOW N/A HYPO 68979-0 1+ N/A CBC W/ AUTO DIFF (RFLX MAN DIFF IF IND) - Collect Date/Time: 08/10/2016 06:10 Test Name Code Test Result Test Units Aurea t Ref Range WBC 39606-8 9.2 TH/CMM L=4.5 H=1 0.8 RBC 789-8 3.07 ML/CMM L=4.70 H=6. 10 HGB 718-7 7.7 G/DL L=14.0 H=18 .0 HCT 4544-3 24.5 % L=42.0 H=52 .0 MCV 43565-6 80 FL L=81 H=9 9 MCH 39593-9 25.1 PG L=27.0 H=3 3.0 MCHC 02727-0 31.4 G/DL L=31.0 H=3 6.0 [place] [address]-6 51 FL L=36 H=5 0 [place] [address]-2 17.6 % L=0.0 H=1 4.8 MPV 95033-1 9.8 FL L=9.3 H=1 2.5 PLT 777-3 267 TH/CMM L=130 H=44 0 NRBC# 29829-1 0.00 TH/CMM L=0.00 H=0 .00 NRBC% 48625-2 0.0 /100WBC L=0.0 H= 2.0 %NEUT 40554-8 68.8 % %LYMP 98760-7 22.0 % %MONO 72608-8 7.4 % %EOS 83443-8 1.0 % %BASO 11062-8 0.4 % #NEUT 58356-5 6.30 TH/CMM L=2.10 H=8 .20 #LYMP 42502-4 2.02 TH/CMM L=0.90 H=5 .20 #MONO 51575-6 0.68 TH/CMM L=0.16 H=1 .00 #EOS 26613-2 0.09 TH/CMM L=0.00 H=0 .80 #BASO 06596-7 0.04 TH/CMM L=0.00 H=0 .20 MANUAL DIFF 72535-9 NOT IND N/A CBC W/ AUTO DIFF (RFLX MAN DIFF IF IND) - Collect Date/Time: 08/09/2016 13:59 Test Name Code Test Result Test Units Aurea t Ref Range WBC 69652-2 10.0 TH/CMM L=4.5 H=1 0.8 RBC 789-8 3.37 ML/CMM L=4.70 H=6. 10 HGB 718-7 8.2 G/DL L=14.0 H=18 .0 HCT 4544-3 27.2 % L=42.0 H=52 .0 MCV 25490-0 81 FL L=81 H=9 9 MCH 42930-3 24.3 PG L=27.0 H=3 3.0 MCHC 26695-5 30.1 G/DL L=31.0 H=3 6.0 [place] [address]-6 51 FL L=36 H=5 0 [place] [address]-0 17.4 % L=0.0 H=1 4.8 MPV 73758-3 9.3 FL L=9.3 H=1 2.5 PLT 777-3 254 TH/CMM L=130 H=44 0 NRBC# 77999-5 0.00 TH/CMM L=0.00 H=0 .00 NRBC% 34117-1 0.0 /100WBC L=0.0 H= 2.0 %NEUT 46992-0 71.8 % %LYMP 70639-8 20.6 % %MONO 18010-1 6.6 % %EOS 99015-7 0.3 % %BASO 16202-0 0.2 % #NEUT 91734-4 7.19 TH/CMM L=2.10 H=8 .20 #LYMP 98395-9 2.06 TH/CMM L=0.90 H=5 .20 #MONO 76623-0 0.66 TH/CMM L=0.16 H=1 .00 #EOS 48858-2 0.03 TH/CMM L=0.00 H=0 .80 #BASO 97414-7 0.02 TH/CMM L=0.00 H=0 .20 MANUAL DIFF 47922-8 NOT IND N/A CBC W/ AUTO DIFF (RFLX MAN DIFF IF IND) - Collect Date/Time: 08/08/2016 06:00 Test Name Code Test Result Test Units Aurea t Ref Range WBC 21289-4 15.4 TH/CMM L=4.5 H=1 0.8 RBC 789-8 4.35 ML/CMM L=4.70 H=6. 10 HGB 718-7 11.2 G/DL L=14.0 H=18 .0 HCT 4544-3 33.5 % L=42.0 H=52 .0 MCV 77 FL L=81 H=99 MCH 25.7 PG L=27.0 H=33 .0 MCHC 33.4 G/DL L=31.0 H=36 .0 RDW SD 49 FL L=36 H=50 RDW CV 18.2 % L=0.0 H=14 .8 MPV 10.2 FL L=9.3 H=12 .5 PLT 777-3 262 TH/CMM L=130 H=44 0 %NEUT 78.4 % %LYMP 11.5 % %MONO 9.7 % %EOS 0.3 % %BASO 0.1 % #NEUT 12.12 TH/CMM L=2.10 H=8. 20 #LYMP 1.77 TH/CMM L=0.90 H=5. 20 #MONO 1.49 TH/CMM L=0.16 H=1. 00 #EOS 0.04 TH/CMM L=0.00 H=0. 80 #BASO 0.02 TH/CMM L=0.00 H=0. 20 MANUAL DIFF NOT IND N/A RETIC COUNT - Collect Date/Time: 017 05:50 Test Name Code Test Result Test Units Aurea t Ref Range RETIC % 85599-4 1.63 % L=0.50 H= 1.80 RETIC # 25416-6 4.73 10^4/uL L=2.60 H =9.50 IRF 15548-5 33.6 % L=2.3 H=1 3.4 RETIC COUNT - Collect Date/Time: 017 06:15 Test Name Code Test Result Test Units Aurea t Ref Range RETIC % 15572-7 0.74 % L=0.50 H= 1.80 RETIC # 29436-9 2.12 10^4/uL L=2.60 H =9.50 IRF 64701-0 21.3 % L=2.3 H=1 3.4 SED RATE - Collect Date/Time: 08/09/2016 13:55 Test Name Code Test Result Test Units Aurae t Ref Range SEDRATE 4537-7 72 MM/HR L=0 H=1 5 OCCULT BLOOD iFOBT - Collect Date/Time: 08/13/2016 00:29 Test Name Code Test Result Test Units Aurea t Ref Range OCC BLD STOOL 2335-8 NEGATIVE N/A NORMAL : NEGATIVE .BB COMPATIBILITY - Collect Date/Time: 0 08/14/2016 09:29 Test Name Code Test Result Test Units Aurea t Ref Range Cross Match Result Compatible N/A Unit Blood Type O Pos N/A Unit Number [id number] RBC -1 LR N/A Status Information Ready N/A Product Identification Red Blood Cells N/A TYPE AND CROSS - Collect Date/Time: 07/18 08:54 Test Name Code Test Result Test Units Aurea t Ref Range Cross Match Result 56758-1 Compatible N/A Unit Blood Type 87877-7 O Pos N/A Unit Number 60963-2 [id number] RBC -1 LR N/A Status Information 22692-9 Ready N/A Product Identification 11797-7 Red Blood Cells N/ A TYPE AND CROSS - Collect Date/Time: 07/18 08:55 Test Name Code Test Result Test Units Aurea t Ref Range ABO/Rh Type 23013-4 O Positive N/A Antibody Screen-Gel 30891-0 Negative N/A Cross Match Result 16042-3 Compatible N/A Unit Blood Type 83240-6 O Pos N/A Unit Number 05838-5 [id number] RBC -1 LR N/A Status Information 68523-0 Ready N/A Product Identification 41507-0 Red Blood Cells N/ A QUANTIFERON TB GOLD - Collect Date/Time: 08/17/2016 05:45 Test Name Code Test Result Test Units Aurea t Ref Range QuantiFERON TB Ag Value 74569-1 0.13 IU/mL QuantiFERON Nil Value 02764-6 0.05 IU/mL QuantiFERON Mitogen Value 09166-5 8.68 IU/mL QFT TB Ag minus Nil Value 35776-2 0.08 IU/mL QuantiFERON TB Gold 54097-9 Negative N/A Negative C REACTIVE PROTEIN - Collect Date/Time: 08/09/2016 13:55 Test Name Code Test Result Test Units Aurea t Ref Range C REACTIVE PROTEIN 1988-5 20.9 MG/DL L=0 .0 H=1.0 FERRITIN - Collect Date/Time: 08/14/2016 05:50 Test Name Code Test Result Test Units Aurea t Ref Range FERRITIN 2276-4 560 ng/mL L=32 H= 322 LACTIC ACID - Collect Date/Time: 09:00 Test Name Code Test Result Test Units Aurea t Ref Range LACTIC ACID 2524-7 1.7 mmol/L L=0.5 H=1.6 LACTIC ACID - Collect Date/Time: 06:15 Test Name Code Test Result Test Units Aurea t Ref Range LACTIC ACID 2524-7 2.2 mmol/L L=0.5 H=1.6 Function Status Unknown or Not Available. History of Immunizations Immunization Code Date pneumococcal polysaccharide PPV23 33 07/19/2016 Plan of Treatment Unknown or Not Available. Social History Smoking Status Code Start Date End Date Current every day smoker [id number] Vital Signs Vital Sign Value Unit Date/Time Recent/I nitial? BMI (Body Mass Index) 21.2 kg/m2 08/08/2016 07 :45 Initial VS Weight Measured 169.6 [lb_av] 08/08/2016 07:45 Initial VS Height 75 [in_i] 08/08/2016 07:45 Initi al VS BSA (Body Surface Area) 2.02 m2 08/08/2016 07:45 Initial VS BP Systolic 111 mm[Hg] 08/08/2016 07:45 Initial VS BP Diastolic 68 mm[Hg] 08/08/2016 07:45 Initial VS Respiratory Rate 18 /min 08/08/2016 07:45 Initial VS Heart Rate 115 /min 08/08/2016 07:45 I nitial VS O2 % BldC Oximetry 98 % 08/08/2016 07:45 Initial VS Body Temperature 101.8 [degF] 08/08/2016 07:45 Initial VS BMI (Body Mass Index) 25.57 kg/m2 08/17/2016 09 :47 Most Recent VS Weight Measured 204.6 [lb_av] 08/17/2016 09:47 Most Recent VS Height 75 [in_i] 08/17/2016 09:47 Most Recent VS BSA (Body Surface Area) 2.22 m2 08/17/2016 09:47 Most Recent VS BP Systolic 129 mm[Hg] 08/17/2016 14:50 Most Recent VS BP Diastolic 84 mm[Hg] 08/17/2016 14:50 Most Recent VS Respiratory Rate 18 /min 08/17/2016 14:50 Most Recent VS Heart Rate 118 /min 08/17/2016 14:50 M ost Recent VS O2 % BldC Oximetry 97 % 08/17/2016 14:50 Most Recent VS Body Temperature 98.9 [degF] 08/17/2016 14:50 Most Recent VS Function Status Unknown or Not Available. Goals Unknown or Not Available. ASSESSMENTS Unknown or Not Available. Health Concerns Section Unknown or Not Available.
--- OUTSIDE RECORDS SUMMARY | 2019-10-30 14:25 | XMS REPORT | CCD ---
Author Author DELONTE LUJAN Organization Unknown Address [address] [place] [address] Care Team Providers Care Private Inquiry Agent Name Role Phone AIME PALUMBO, LISS Keith Attphys LISS SALOMON MD Prisurchina Allergies Allergy Code Allergy Type Reaction Status VANCOMYCIN 66653 Drug allergy Activ e Active Medications Medication Code Dose Units Frequency Rou te Modification Start Date/Time flexeril 0 10 MILLIGRAMS THREE TIMES A D AY ORAL 08/17/2016 11:47 Prescription Detail 10 MILLIGRAMS ORAL THREE TI MES A DAY Magnesium Oxide 400MG Oral Tablet 513660 1 T ABLET THREE TIMES A DAY BY MOUTH 08/17/2016 11:46 Prescription Detail 1 TABLET BY MOUTH THREE KING ES A DAY ceFAZolin Sodium-Sodium Chloride 3GM-0.9% Intravenous Solution 90393580478 3 GRAM EVERY 8 HOURS INJECTION 08/17/2016 11:45 Prescription Detail 3 GRAM INJECTION EVERY 8 HO URS Oxazepam 10MG Oral Capsule 127590 1 TABLET DAILY BY MOUTH 08/17/2016 11:44 Prescription Detail 1 TABLET BY MOUTH DAILY HYDROcodone bitartrate-acetaminophen 5MG-325MG Oral Tablet 473568 1 TABLET NEEDED EVERY 6 HR BY MOUTH 08/17/2016 11:43 Prescription Detail 1 TABLET BY MOUTH NEEDED EVERY 6 HR Protonix 40MG Oral Tablet, Enteric Coated 665223 40 MILLIGRAMS DAILY BY MOUTH 08/17/2016 11:43 Prescription Detail 40 MILLIGRAMS BY MOUTH GONZALEZ Y traZODone hydrochloride 50MG Oral Tablet 846031 1 TABLET DAILY BY MOUTH 08/17/2016 11:43 Prescription Detail 1 TABLET BY MOUTH DAILY Furosemide 10MG/1ML Injection Solution 1861747 40 MILLIGRAMS DAILY IVP 08/17/2016 11:42 Prescription Detail 40 MILLIGRAMS IVP DAILY Nicotine Transdermal System 14MG/24HR Transdermal Patc h, Extended Release 882052 14 MILLIGRAMS DAILY TOPICAL APPLICATION 08/17/2016 11:42 Prescription Detail 14 MILLIGRAMS TOPICAL APPLI CATION DAILY Problems Problem Code Start Date Resolved Date Sta tus Sepsis 72292678 08/07/2016 Active Endocarditis 32744777 08/07/2016 Act merline Bacterial sepsis 20306385 04/26/2015 07/29/2016 Resolved Septic pulmonary embolism 098657296 07/29/2016 08/07/2016 Resolved Endocarditis 95592251 07/29/2016 08/07/2016 Resolved Fever 934898757 07/29/2016 Resolved Procedures Unknown or Not Available. Results Unknown or Not Available. Encounters Encounter Diagnosis Diagnosis Code Start Date Pain in thoracic spine M546 06/05/2016 Function Status Unknown or Not Available. History of Immunizations Immunization Code Date pneumococcal polysaccharide PPV23 33 07/19/2016 Social History Smoking Status Code Start Date End Date Current every day smoker [id number] Vital Signs Unknown or Not Available. Function Status Unknown or Not Available. Goals Unknown or Not Available. ASSESSMENTS Unknown or Not Available. Health Concerns Section Unknown or Not Available.
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
--- OUTSIDE RECORDS SUMMARY | 2019-10-30 14:26 | XMS REPORT | CCD ---
Author Author DELONTE LUJAN Organization Unknown Address [address] [place] [address] Care Team Providers Care Application Development Intern Name Role Phone BOUBACAR GEORGE MD Attphys JAVIER, QUOC DO Prisurg Allergies Allergy Code Allergy Type Reaction Status VANCOMYCIN 91145 Drug allergy Activ e Active Medications Medication Code Dose Units Frequency Rou te Modification Start Date/Time flexeril 0 10 MILLIGRAMS THREE TIMES A D AY ORAL 08/17/2016 11:47 Prescription Detail 10 MILLIGRAMS ORAL THREE TI MES A DAY Magnesium Oxide 400MG Oral Tablet 419058 1 T ABLET THREE TIMES A DAY BY MOUTH 08/17/2016 11:46 Prescription Detail 1 TABLET BY MOUTH THREE KING ES A DAY ceFAZolin Sodium-Sodium Chloride 3GM-0.9% Intravenous Solution [id number] 3 GRAM EVERY 8 HOURS INJECTION 08/17/2016 11:45 Prescription Detail 3 GRAM INJECTION EVERY 8 HO URS Oxazepam 10MG Oral Capsule 488088 1 TABLET DAILY BY MOUTH 08/17/2016 11:44 Prescription Detail 1 TABLET BY MOUTH DAILY HYDROcodone bitartrate-acetaminophen 5MG-325MG Oral Tablet 466664 1 TABLET NEEDED EVERY 6 HR BY MOUTH 08/17/2016 11:43 Prescription Detail 1 TABLET BY MOUTH NEEDED EVERY 6 HR Protonix 40MG Oral Tablet, Enteric Coated 951369 40 MILLIGRAMS DAILY BY MOUTH 08/17/2016 11:43 Prescription Detail 40 MILLIGRAMS BY MOUTH GONZALEZ Y traZODone hydrochloride 50MG Oral Tablet 863988 1 TABLET DAILY BY MOUTH 08/17/2016 11:43 Prescription Detail 1 TABLET BY MOUTH DAILY Furosemide 10MG/1ML Injection Solution [id number] 40 MILLIGRAMS DAILY IVP 08/17/2016 11:42 Prescription Detail 40 MILLIGRAMS IVP DAILY Nicotine Transdermal System 14MG/24HR Transdermal Patc h, Extended Release 585953 14 MILLIGRAMS DAILY TOPICAL APPLICATION 08/17/2016 11:42 Prescription Detail 14 MILLIGRAMS TOPICAL APPLI CATION DAILY Problems Problem Code Start Date Resolved Date Sta tus Sepsis 78776935 08/07/2016 Active Endocarditis 11392706 08/07/2016 Act merline Bacterial sepsis 31447845 04/26/2015 07/29/2016 Resolved Septic pulmonary embolism 626724525 07/29/2016 08/07/2016 Resolved Endocarditis 39969937 07/29/2016 08/07/2016 Resolved Fever 878989119 07/29/2016 Resolved Procedures Procedure Code Procedure Type Date SCAPULA,COMPLETE 97915095 SNOMED CT 7 Results Unknown or Not Available. Function Status Unknown or Not Available. History of Immunizations Immunization Code Date pneumococcal polysaccharide PPV23 33 07/19/2016 Plan of Treatment Unknown or Not Available. Social History Smoking Status Code Start Date End Date Current every day smoker 761813321 Vital Signs Unknown or Not Available. Function Status Unknown or Not Available. Goals Unknown or Not Available. ASSESSMENTS Unknown or Not Available. Health Concerns Section Unknown or Not Available.
--- OUTSIDE RECORDS SUMMARY | 2019-10-30 14:26 | XMS REPORT | CCD ---
Author Author DELONTE YUSUF Organization Unknown Address [address] [facility] [address] [place] [address] Care Team Providers Care Animal Care Technician Name Role Phone HAL Diego NABOR LEIJA Attphys JAVIER, QUOC DO Prisurg O., GIANNA NASST B., MICKY NASST S., MULU NASST Allergies Allergy Code Allergy Type Reaction Status WASP VENOM 0 Drug allergy ANGIOEDEMA A ctive BEE VENOM 0 Drug allergy ANGIOEDEMA Ac tive VANCOMYCIN 52359 Drug allergy RASH Activ e Active Medications Medication Code Dose Units Frequency Rou te Modification Start Date/Time TRAZODONE [DESYREL] TABLET : 50 MG 940608 100 MG PRN Q HS PO 07/31/2016 20:59 LORAZEPAM (ATIVAN)TAB:1MG 694309 1 MG WI N PO 07/30/2016 18:27 CEFAZOLIN [ANCEF] IV 1GM (PREDEFINED) 7427822 Q6H IVPB 07/30/2016 12:00 ~~ CEFAZOLIN [ANCEF] VIAL : 1GM ADD-VANTAGE 8744577 1 GM ~~ NACL 0.9% ADD-VANTAGE: 50 ML BAG 6250355 50 ML ACETAMINOPHEN ES [TYLENOL] TAB : 500 MG 310898 500 MG PRN PO 07/30/2016 08:58 MAALOX EXTRA STRENGTH LIQUID: PER ML 893389 30 ML PRN PO 07/30/2016 08:58 MILK OF MAGNESIA:30ML 740074 30 ML PRN PO 07/30/2016 08:58 ONDANSETRON [ZOFRAN] INJ 4 MG/2 ML VIAL 9407618 4 MG PRN SIVP 07/30/2016 08:58 NORCO [HYDROCODONE/APAP] 5/325MG TAB 664452 1 TAB PRN Q 6 HRS PO 07/30/2016 08:32 IBUPROFEN (MOTRIN) TAB:800 MG 019632 800 MG PRN PO 07/30/2016 06:01 RIVAROXABAN [XARELTO] TABLET : 10MG 8555556 10 MG DAILY PO 07/30/2016 Problems Problem Code Start Date Resolved Date Sta tus Sepsis 22040588 08/07/2016 Active Endocarditis 37743606 08/07/2016 Act merline Septic pulmonary embolism 391777917 07/29/2016 08/07/2016 Resolved Endocarditis 99360253 07/29/2016 08/07/2016 Resolved Procedures Procedure Code Procedure Type Date CX CHEST [address] 07/31/2016 CX CHEST [address] 7 CBC W/ AUTO DIFF (RFLX MAN DIFF IF IND) 7817881 SN [facility] 08/02/2016 CBC W/ AUTO DIFF (RFLX MAN DIFF IF IND) 8677932 SN [facility] CT 08/01/2016 RAPID DRUG SCREEN 085143952 SNOMED CT 07/31/19 17 IRON PANEL 265664283 SNOMED CT 07/30/2016 LIPID PANEL 64581191 SNOMED CT 07/30/[address] 07/30/[address] 07/30/2016 COMPREHENSIVE METABOLIC PANEL 697540274 SNOMED CT 07/31/2016 CBC W/ AUTO DIFF (RFLX MAN DIFF IF IND) 2054982 SN [facility] CT 07/31/2016 COMPREHENSIVE METABOLIC PANEL 465569830 SNOMED CT 07/30/2016 CBC W/ AUTO DIFF (RFLX MAN DIFF IF IND) 4509194 SN [facility] CT 07/30/2016 CULTURE BLOOD 36868525 SNOMED CT 07/29/2016 LACTIC ACID 1447957 [address] 07/29/2016 C REACTIVE PROTEIN 45206495 SNOMED CT 017 COMPREHENSIVE METABOLIC PANEL 628907640 SNOMED CT 07/29/2016 CBC W/ AUTO DIFF (RFLX MAN DIFF IF IND) 7472734 SN [facility] CT 07/29/2016 PT EVALUATION; LOW 156643660 SNOMED CT 017 BLOOD COLLECTION PORT 916926997 SNOMED CT 07/17 ^CBC W/AUTO DIFF 3712035 SNOMED CT 7 ^CBC W/AUTO DIFF 2465244 SNOMED CT 7 ^CBC W/AUTO DIFF 0395213 SNOMED CT 7 ^CBC W/ MANUAL DIFF 93087969 SNOMED CT 2016 ^CBC W/ MANUAL DIFF 09675865 SNOMED CT 2016 Results COMPREHENSIVE METABOLIC PANEL - Collect Date/Time: 07/31/2016 11:10 Test Name Code Test Result Test Units Aurea t Ref Range GLUCOSE 2345-7 138 MG/DL L=70 H=1 00 SODIUM 2951-2 141 MEQ/L L=135 H=14 8 POTASSIUM 2823-3 3.7 MEQ/L L=3.5 H =5.3 CHLORIDE 2075-0 104 MEQ/L L=96 H= 110 CO2 2028-9 25 MEQ/L L=22 H=29 BUN 3094-0 10 MG/DL L=8 H=22 CREATININE 2160-0 0.8 MG/DL L=0.6 H=1.6 SGOT/AST 1920-8 16 IU/L L=10 H= 40 SGPT/ALT 1742-6 8 IU/L L=8 H= 54 ALK PHOS 6768-6 88 IU/L L=35 H= 115 TOTAL PROTEIN 2885-2 6.6 G/DL L=5.5 H=8.5 ALBUMIN 1751-7 3.4 G/DL L=3.1 H=5 .4 TOTAL BILI 1975-2 0.5 MG/DL L=0.0 H=1.5 CALCIUM 14776-3 8.7 MG/DL L=8.2 H= 10.6 AGE 50416-6 40 yrs GFR NonAA 89739-5 107 GFR AA 10793-7 130 eGFR 54670-4 >60 N/A eGFR AA* 98761-1 >60 N/A COMPREHENSIVE METABOLIC PANEL - Collect Date/Time: 07/30/2016 10:30 Test Name Code Test Result Test Units Aurea t Ref Range GLUCOSE 2345-7 113 MG/DL L=70 H=1 00 SODIUM 2951-2 138 MEQ/L L=135 H=14 8 POTASSIUM 2823-3 4.3 MEQ/L L=3.5 H =5.3 CHLORIDE 2075-0 103 MEQ/L L=96 H= 110 CO2 2028-9 27 MEQ/L L=22 H=29 BUN 3094-0 12 MG/DL L=8 H=22 CREATININE 2160-0 0.8 MG/DL L=0.6 H=1.6 SGOT/AST 1920-8 18 IU/L L=10 H= 40 SGPT/ALT 1742-6 9 IU/L L=8 H= 54 ALK PHOS 6768-6 92 IU/L L=35 H= 115 TOTAL PROTEIN 2885-2 6.7 G/DL L=5.5 H=8.5 ALBUMIN 1751-7 3.4 G/DL L=3.1 H=5 .4 TOTAL BILI 1975-2 0.6 MG/DL L=0.0 H=1.5 CALCIUM 60712-9 8.7 MG/DL L=8.2 H= 10.6 AGE [address]5092-3 40 yrs GFR NonAA 35099-0 107 GFR AA 87435-2 130 eGFR 31196-7 >60 N/A eGFR AA* 03510-1 >60 N/A COMPREHENSIVE METABOLIC PANEL - Collect Date/Time: 07/29/2016 22:25 Test Name Code Test Result Test Units Aurea t Ref Range GLUCOSE 2345-7 151 MG/DL L=70 H=1 00 SODIUM 2951-2 138 MEQ/L L=135 H=14 8 POTASSIUM 2823-3 3.9 MEQ/L L=3.5 H =5.3 CHLORIDE 2075-0 102 MEQ/L L=96 H= 110 CO2 2028-9 27 MEQ/L L=22 H=29 BUN 3094-0 14 MG/DL L=8 H=22 CREATININE 2160-0 0.8 MG/DL L=0.6 H=1.6 SGOT/AST 1920-8 20 IU/L L=10 H= 40 SGPT/ALT 1742-6 10 IU/L L=8 H= 54 ALK PHOS 6768-6 93 IU/L L=35 H= 115 TOTAL PROTEIN 2885-2 6.8 G/DL L=5.5 H=8.5 ALBUMIN 1751-7 3.5 G/DL L=3.1 H=5 .4 TOTAL BILI 1975-2 0.4 MG/DL L=0.0 H=1.5 CALCIUM 18173-3 8.7 MG/DL L=8.2 H= 10.6 AGE 40 yrs GFR NonAA 107 GFR AA 130 eGFR >60 N/A eGFR AA* >60 N/A LIPID PANEL - Collect Date/Time: 017 10:30 Test Name Code Test Result Test Units Aurea t Ref Range TRIGLYCERIDES 3043-7 138 MG/DL L=0 H=135 CHOLESTEROL 2093-3 103 MG/DL L=0 H=199 HDL 2085-9 14 MG/DL L=27 H=67 TOT CHOL/HDL 66800-7 7.4 L=0.0 H=5.0 LDL (CALC) 78692-8 61 MG/DL L=0 H=129 MAGNESIUM - Collect Date/Time: 7 10:30 Test Name Code Test Result Test Units Aurea t Ref Range MAGNESIUM 35296-7 1.8 MG/DL L=1.7 H=2.8 PHOSPHORUS - Collect Date/Time: 07/31/19 17 10:30 Test Name Code Test Result Test Units Aurea t Ref Range PHOSPHORUS 2777-1 3.4 MG/DL L=2.5 H=4.5 RAPID DRUG SCREEN - Collect Date/Time: 0 07/30/2016 12:00 Test Name Code Test Result Test Units Aurea t Ref Range Cannabinoids (THC) 85495-9 NEGATIVE N/A NEG: < 50 ng/ml Phencyclidine (PCP) 51992-0 NEGATIVE N/A NEG: < 25 ng/ml Cocaine 74060-1 NEGATIVE N/A NEG: < 300 ng/ml Methamphetamine 78269-1 NEGATIVE N/A NEG : < 1000 ng/ml Opiates 52624-0 NON-NEGATIVE N/A NEG: < 300 ng/ml Amphetamine 92693-3 NEGATIVE N/A NEG: < 1000 ng/ml Benzodiazepines 75733-9 NEGATIVE N/A NEG : < 300 ng/ml Tricyclic Antidepres 04725-4 NEGATIVE N/A NEG: < 300 ng/ml Methadone 45397-2 NEGATIVE N/A NEG: < 3 00 ng/ml Barbiturates 63276-9 NEGATIVE N/A NEG: < 200 ng/ml Oxycodone 93690-1 NEGATIVE N/A NEG: < 1 00 ng/ml Propoxyphene (PPX) 80072-3 NEGATIVE N/A NEG: < 300 ng/ml CBC W/ AUTO DIFF (RFLX MAN DIFF IF IND) - Collect Date/Time: 08/02/2016 05:10 Test Name Code Test Result Test Units Aurea t Ref Range WBC 50365-8 8.4 TH/CMM L=4.5 H=1 0.8 RBC 789-8 3.83 ML/CMM L=4.70 H=6. 10 HGB 718-7 9.6 G/DL L=14.0 H=18 .0 HCT 4544-3 30.8 % L=42.0 H=52 .0 MCV 09783-2 80 FL L=81 H=9 9 MCH 83560-2 25.1 PG L=27.0 H=3 3.0 MCHC 85044-1 31.2 G/DL L=31.0 H=3 6[place]0 [place] [address]-5 51 FL L=36 H=5 0 [place] [address]-1 17.2 % L=0.0 H=1 4.8 MPV 20429-8 8.6 FL L=9.3 H=1 2.5 PLT 777-3 287 TH/CMM L=130 H=44 0 NRBC# 70097-1 0.00 TH/CMM L=0.00 H=0 .00 NRBC% 03571-2 0.0 /100WBC L=0.0 H= 2.0 %NEUT 40062-2 59.5 % %LYMP 52703-3 29.3 % %MONO 88956-8 7.3 % %EOS 14798-1 2.7 % %BASO 27048-8 0.4 % #NEUT 04189-2 5.00 TH/CMM L=2.10 H=8 .20 #LYMP 08212-4 2.46 TH/CMM L=0.90 H=5 .20 #MONO 33912-1 0.61 TH/CMM L=0.16 H=1 .00 #EOS 62409-1 0.23 TH/CMM L=0.00 H=0 .80 #BASO 11597-3 0.03 TH/CMM L=0.00 H=0 .20 MANUAL DIFF 74947-3 NOT IND N/A CBC W/ AUTO DIFF (RFLX MAN DIFF IF IND) - Collect Date/Time: 08/01/2016 05:35 Test Name Code Test Result Test Units Aurea t Ref Range WBC 84120-6 7.5 TH/CMM L=4.5 H=1 0.8 RBC 789-8 3.99 ML/CMM L=4.70 H=6. 10 HGB 718-7 9.9 G/DL L=14.0 H=18 .0 HCT 4544-3 32.0 % L=42.0 H=52 .0 MCV 14696-0 80 FL L=81 H=9 9 MCH 69415-3 24.8 PG L=27.0 H=3 3.0 MCHC 53226-5 30.9 G/DL L=31.0 H=3 6.0 [place] [address]-9 52 FL L=36 H=5 0 [place] [address]-3 17.5 % L=0.0 H=1 4.8 MPV 29024-1 9.0 FL L=9.3 H=1 2.5 PLT 777-3 266 TH/CMM L=130 H=44 0 NRBC# 09518-2 0.00 TH/CMM L=0.00 H=0 .00 NRBC% 26245-8 0.0 /100WBC L=0.0 H= 2.0 %NEUT 08298-9 57.1 % %LYMP 43086-4 30.2 % %MONO 48489-6 9.9 % %EOS 48407-7 1.6 % %BASO 34175-2 0.4 % #NEUT 27960-9 4.28 TH/CMM L=2.10 H=8 .20 #LYMP 21628-7 2.26 TH/CMM L=0.90 H=5 .20 #MONO 62229-8 0.74 TH/CMM L=0.16 H=1 .00 #EOS 63667-2 0.12 TH/CMM L=0.00 H=0 .80 #BASO 19553-6 0.03 TH/CMM L=0.00 H=0 .20 MANUAL DIFF 86209-3 NOT IND N/A CBC W/ AUTO DIFF (RFLX MAN DIFF IF IND) - Collect Date/Time: 07/31/2016 11:10 Test Name Code Test Result Test Units Aurea t Ref Range WBC 12985-1 6.1 TH/CMM L=4.5 H=1 0.8 RBC 789-8 3.97 ML/CMM L=4.70 H=6. 10 HGB 718-7 9.8 G/DL L=14.0 H=18 .0 HCT 4544-3 31.6 % L=42.0 H=52 .0 MCV 70151-2 80 FL L=81 H=9 9 MCH 19778-3 24.7 PG L=27.0 H=3 3.0 MCHC 59717-7 31.0 G/DL L=31.0 H=3 6.0 [place] [address]-2 52 FL L=36 H=5 0 [place] [address]-9 17.7 % L=0.0 H=1 4.8 MPV 02048-8 8.9 FL L=9.3 H=1 2.5 PLT 777-3 196 TH/CMM L=130 H=44 0 NRBC# 43429-4 0.00 TH/CMM L=0.00 H=0 .00 NRBC% 55037-3 0.0 /100WBC L=0.0 H= 2.0 %NEUT 77968-4 63.6 % %LYMP 78734-7 25.4 % %MONO 13995-3 7.9 % %EOS 16802-3 2.3 % %BASO 43750-8 0.3 % #NEUT 69170-2 3.85 TH/CMM L=2.10 H=8 .20 #LYMP 54805-1 1.54 TH/CMM L=0.90 H=5 .20 #MONO 18877-8 0.48 TH/CMM L=0.16 H=1 .00 #EOS 23553-6 0.14 TH/CMM L=0.00 H=0 .80 #BASO 60055-5 0.02 TH/CMM L=0.00 H=0 .20 MANUAL DIFF 74384-0 NOT IND N/A CBC W/ AUTO DIFF (RFLX MAN DIFF IF IND) - Collect Date/Time: 07/30/2016 10:30 Test Name Code Test Result Test Units Aurea t Ref Range WBC 61919-1 6.0 TH/CMM L=4.5 H=1 0.8 RBC 789-8 3.88 ML/CMM L=4.70 H=6. 10 HGB 718-7 9.8 G/DL L=14.0 H=18 .0 HCT 4544-3 30.9 % L=42.0 H=52 .0 MCV 23373-2 80 FL L=81 H=9 9 MCH 91078-5 25.3 PG L=27.0 H=3 3.0 MCHC 64970-4 31.7 G/DL L=31.0 H=3 6.0 [place] [address]-6 52 FL L=36 H=5 0 RDW CV 09091-4 18.1 % L=0.0 H=1 4.8 MPV 58134-5 9.6 FL L=9.3 H=1 2.5 PLT 777-3 166 TH/CMM L=130 H=44 0 NRBC# 88870-3 0.00 TH/CMM L=0.00 H=0 .00 NRBC% 33618-3 0.0 /100WBC L=0.0 H= 2.0 %NEUT 12323-9 64.9 % %LYMP 82419-2 24.0 % %MONO 84059-5 9.3 % %EOS 80086-4 1.2 % %BASO 36849-3 0.3 % #NEUT 51959-8 3.92 TH/CMM L=2.10 H=8 .20 #LYMP 15570-8 1.45 TH/CMM L=0.90 H=5 .20 #MONO 63698-0 0.56 TH/CMM L=0.16 H=1 .00 #EOS 95299-5 0.07 TH/CMM L=0.00 H=0 .80 #BASO 20794-6 0.02 TH/CMM L=0.00 H=0 .20 SEGS 54948-7 67 % BANDS 30644-4 4 % LYMPHS 02050-3 24 % MONOS 79069-5 3 % EOS 31428-0 2 % MANUAL DIFF 60740-1 SEE BELOW N/A MICRO 72837-5 1+ N/A MACRO 14584-9 1+ N/A ANISO 02017-3 2+ N/A HYPO 24762-8 1+ N/A CBC W/ AUTO DIFF (RFLX MAN DIFF IF IND) - Collect Date/Time: 07/29/2016 22:25 Test Name Code Test Result Test Units Aurea t Ref Range WBC 30328-3 6.2 TH/CMM L=4.5 H=1 0.8 RBC 789-8 3.82 ML/CMM L=4.70 H=6. 10 HGB 718-7 9.5 G/DL L=14.0 H=18 .0 HCT 4544-3 30.2 % L=42.0 H=52 .0 MCV 79 FL L=81 H=99 MCH 24.9 PG L=27.0 H=33 .0 MCHC 31.5 G/DL L=31.0 H=36 .0 RDW SD 52 FL L=36 H=50 RDW CV 18.0 % L=0.0 H=14 .8 MPV 9.3 FL L=9.3 H=12 .5 PLT 777-3 183 TH/CMM L=130 H=44 0 NRBC# 0.00 TH/CMM L=0.00 H=0. 00 NRBC% 0.0 /100WBC L=0.0 H=2 .0 %NEUT 57.6 % %LYMP 30.4 % %MONO 9.0 % %EOS 2.3 % %BASO 0.5 % #NEUT 3.59 TH/CMM L=2.10 H=8. 20 #LYMP 1.89 TH/CMM L=0.90 H=5. 20 #MONO 0.56 TH/CMM L=0.16 H=1. 00 #EOS 0.14 TH/CMM L=0.00 H=0. 80 #BASO 0.03 TH/CMM L=0.00 H=0. 20 SEGS 43 % BANDS 18 % LYMPHS 27 % MONOS 6 % EOS 6 % MANUAL DIFF SEE BELOW N/A ATYP LYMPHS FEW N/A RBC MORPH 1+ HYPO N/A C REACTIVE PROTEIN - Collect Date/Time: 07/29/2016 22:25 Test Name Code Test Result Test Units Aurea t Ref Range C REACTIVE PROTEIN 1988- 10.7 MG/DL L=0 .0 H=1.0 IRON PANEL - Collect Date/Time: 07/31/19 17 10:30 Test Name Code Test Result Test Units Aurea t Ref Range IRON TOTAL 2498-4 12 MCG/DL L=50 H=212 Transferrin 3034-6 218 MG/DL L=175 H=375 TIBC Calculation 2500-7 273 MG/DL L=250 H=450 %Saturation Calc 2500-7 4 % L=15 H=55 LACTIC ACID - Collect Date/Time: 017 22:25 Test Name Code Test Result Test Units Aurea t Ref Range LACTIC ACID 2524-7 1.2 mmol/L L=0.5 H=1.6 Function Status Unknown or Not Available. History of Immunizations Immunization Code Date pneumococcal polysaccharide PPV23 33 07/19/2016 Plan of Treatment Unknown or Not Available. Social History Smoking Status Code Start Date End Date Current every day smoker [id number] Vital Signs Vital Sign Value Unit Date/Time Recent/I nitial? BMI (Body Mass Index) 22.31 kg/m2 07/30/2016 01 :08 Initial VS Weight Measured 178.5 [lb_av] 07/30/2016 01:08 Initial VS Height 75 [in_i] 07/30/2016 01:08 Initi al VS BSA (Body Surface Area) 2.07 m2 07/30/2016 01:08 Initial VS BP Systolic 122 mm[Hg] 07/30/2016 01:08 Initial VS BP Diastolic 83 mm[Hg] 07/30/2016 01:08 Initial VS Respiratory Rate 20 /min 07/30/2016 01:08 Initial VS Heart Rate 96 /min 07/30/2016 01:08 I nitial VS O2 % BldC Oximetry 97 % 07/30/2016 01:08 Initial VS Body Temperature 98.4 [degF] 07/30/2016 01:08 Initial VS BP Systolic 130 mm[Hg] 08/02/2016 08:23 Most Recent VS BP Diastolic 97 mm[Hg] 08/02/2016 08:23 Most Recent VS Respiratory Rate 16 /min 08/02/2016 08:35 Most Recent VS Heart Rate 108 /min 08/02/2016 08:35 M ost Recent VS O2 % BldC Oximetry 98 % 08/02/2016 08:35 Most Recent VS Body Temperature 98.8 [degF] 08/02/2016 08:35 Most Recent VS Function Status Unknown or Not Available. Goals Unknown or Not Available. ASSESSMENTS Unknown or Not Available. Health Concerns Section Unknown or Not Available.
--- OUTSIDE RECORDS SUMMARY | 2019-10-30 14:26 | XMS REPORT | CCD ---
Author Author DELONTE YUSUF Organization Unknown Address [address] [facility] [address] [place] [address] Care Team Providers Care Fee Clerk Name Role Phone SAILAJA PALUMBO, AMARILYS Keith Attphys SAILAJA PALUMBO, AMARILYS Keith Prisurg Allergies Allergy Code Allergy Type Reaction Status VANCOMYCIN 31762 Drug allergy Activ e Active Medications Medication Code Dose Units Frequency Rou te Modification Start Date/Time flexeril 0 10 MILLIGRAMS THREE TIMES A D AY ORAL 08/17/2016 11:47 Prescription Detail 10 MILLIGRAMS ORAL THREE TI MES A DAY Magnesium Oxide 400MG Oral Tablet 775230 1 T ABLET THREE TIMES A DAY BY MOUTH 08/17/2016 11:46 Prescription Detail 1 TABLET BY MOUTH THREE KING ES A DAY ceFAZolin Sodium-Sodium Chloride 3GM-0.9% Intravenous Solution 06330288623 3 GRAM EVERY 8 HOURS INJECTION 08/17/2016 11:45 Prescription Detail 3 GRAM INJECTION EVERY 8 HO URS Oxazepam 10MG Oral Capsule 066804 1 TABLET DAILY BY MOUTH 08/17/2016 11:44 Prescription Detail 1 TABLET BY MOUTH DAILY HYDROcodone bitartrate-acetaminophen 5MG-325MG Oral Tablet 429752 1 TABLET NEEDED EVERY 6 HR BY MOUTH 08/17/2016 11:43 Prescription Detail 1 TABLET BY MOUTH NEEDED EVERY 6 HR Protonix 40MG Oral Tablet, Enteric Coated 451388 40 MILLIGRAMS DAILY BY MOUTH 08/17/2016 11:43 Prescription Detail 40 MILLIGRAMS BY MOUTH GONZALEZ Y traZODone hydrochloride 50MG Oral Tablet 313840 1 TABLET DAILY BY MOUTH 08/17/2016 11:43 Prescription Detail 1 TABLET BY MOUTH DAILY Furosemide 10MG/1ML Injection Solution 9949623 40 MILLIGRAMS DAILY IVP 08/17/2016 11:42 Prescription Detail 40 MILLIGRAMS IVP DAILY Nicotine Transdermal System 14MG/24HR Transdermal Patc h, Extended Release 684415 14 MILLIGRAMS DAILY TOPICAL APPLICATION 08/17/2016 11:42 Prescription Detail 14 MILLIGRAMS TOPICAL APPLI CATION DAILY Problems Problem Code Start Date Resolved Date Sta tus Sepsis 26831736 08/07/2016 Active Endocarditis 15304891 08/07/2016 Act merline Bacterial sepsis 10356210 04/26/2015 07/29/2016 Resolved Septic pulmonary embolism 171792626 07/29/2016 08/07/2016 Resolved Endocarditis 16509390 07/29/2016 08/07/2016 Resolved Fever 690802326 07/29/2016 Resolved Procedures Procedure Code Procedure Type Date CT CHEST W/CONTRAST 01113581 [facility] CT 2016 CX CHEST 2 VIEWS 451023905 [facility] CT 7 .AMP EXPANDED CONF [place] [id number] [facility] TROPONIN-I ADV 045656619 [facility] CT 07/03/2016 INFLUENZA A & B [id number] [facility] CT 07/03/2016 RAPID DRUG SCREEN 665936280 [facility] CT 07/04/19 17 UA ROUTINE C&S IF IND [id number] [facility]16 CULT[facility]LOOD 94476023 [facility] 07/03[facility]2016 [facility]LOOD 58214385 [facility] 07/[facility]/2016 D DIMER QUANT [id number] [facility] 07/[facility]/2016 C REACTIVE PROTEIN 36195418 [facility] CT 017 BNP [id number] [facility] CT 07/03/2016 COMPREHENSIVE METABOLIC PANEL 867478275 [facility] CT 07/03/2016 CBC W/ AUTO DIFF (RFLX MAN DIFF IF IND) [facility]13312 [facility] ^[facility]ENSITIVITY [id number] [facility]2016 ^CULTURE AEROBIC ID [id number] [facility] 2016 ^UA AUTO DIPSTICK ONLY [id number] [facility] ^CBC W/AUTO DIFF [id number] [facility] CT 7 LOCM 300-349 MG/ML, PER ML [id number] [facility] CT 07/03/2016 Results COMPREHENSIVE METABOLIC PANEL - Collect Date/Time: 07/03/2016 03:50 Test Name Code Test Result Test Units Aurea t Ref Range GLUCOSE 2345-7 127 MG/DL L=70 H=1 00 SODIUM 2951-2 135 MEQ/L L=135 H=14 8 POTASSIUM 2823-3 3.9 MEQ/L L=3.5 H =5.3 CHLORIDE 2075-0 100 MEQ/L L=96 H= 110 CO2 2028-9 24 MEQ/L L=22 H=29 BUN 3094-0 14 MG/DL L=8 H=22 CREATININE 2160-0 0.8 MG/DL L=0.6 H=1.6 SGOT/AST 1920-8 26 IU/L L=10 H= 40 SGPT/ALT 1742-6 19 IU/L L=8 H= 54 ALK PHOS 6768-6 99 IU/L L=35 H= 115 TOTAL PROTEIN 2885-2 6.6 G/DL L=5.5 H=8.5 ALBUMIN 1751-7 3.1 G/DL L=3.1 H=5 .4 TOTAL BILI 1975-2 0.5 MG/DL L=0.0 H=1.5 CALCIUM 39169-5 8.4 MG/DL L=8.2 H= 10.6 AGE 40 yrs GFR NonAA 107 GFR AA 130 eGFR >60 N/A eGFR AA* >60 N/A RAPID DRUG SCREEN - Collect Date/Time: 0 07/03/2016 06:20 Test Name Code Test Result Test Units Aurea t Ref Range Cannabinoids (THC) NEGATIVE N/A N EG: < 50 ng/ml Phencyclidine (PCP) NEGATIVE N/A NEG: < 25 ng/ml Cocaine NEGATIVE N/A NEG: < 300 ng/ml Methamphetamine NON-NEGATIVE N/A NEG: < 1000 ng/ml Opiates NON-NEGATIVE N/A NEG: < 300 ng/ml Amphetamine NON-NEGATIVE N/A NEG: < 1000 ng/ml Benzodiazepines NEGATIVE N/A NEG: < 300 ng/ml Tricyclic Antidepres NEGATIVE N/A NEG: < 300 ng/ml Methadone NEGATIVE N/A NEG: < 30 0 ng/ml Barbiturates NEGATIVE N/A NEG: < 200 ng/ml Oxycodone NEGATIVE N/A NEG: < 10 0 ng/ml Propoxyphene (PPX) NEGATIVE N/A N EG: < 300 ng/ml CBC W/ AUTO DIFF (RFLX MAN DIFF IF IND) - Collect Date/Time: 07/03/2016 03:50 Test Name Code Test Result Test Units Aurea t Ref Range WBC 04163-6 8.8 TH/CMM L=4.5 H=1 0.8 RBC 789-8 3.62 ML/CMM L=4.70 H=6. 10 HGB 718-7 9.1 G/DL L=14.0 H=18 .0 HCT 4544-3 28.1 % L=42.0 H=52 .0 MCV 78 FL L=81 H=99 MCH 25.1 PG L=27.0 H=33 .0 MCHC 32.4 G/DL L=31.0 H=36 .0 RDW SD 47 FL L=36 H=50 RDW CV 16.6 % L=0.0 H=14 .8 MPV 9.6 FL L=9.3 H=12 .5 PLT 777-3 243 TH/CMM L=130 H=44 0 NRBC# 0.00 TH/CMM L=0.00 H=0. 00 NRBC% 0.0 /100WBC L=0.0 H=2 .0 %NEUT 76.1 % %LYMP 16.1 % %MONO 6.9 % %EOS 0.3 % %BASO 0.3 % #NEUT 6.70 TH/CMM L=2.10 H=8. 20 #LYMP 1.42 TH/CMM L=0.90 H=5. 20 #MONO 0.61 TH/CMM L=0.16 H=1. 00 #EOS 0.03 TH/CMM L=0.00 H=0. 80 #BASO 0.03 TH/CMM L=0.00 H=0. 20 MANUAL DIFF NOT IND N/A D DIMER QUANT - Collect Date/Time: 07/03 03:50 Test Name Code Test Result Test Units Aurea t Ref Range D-DIMER QUANT 32037-4 0.79 MG/L FEU L=0.0 0 H=0.50 UA ROUTINE C&S IF IND - Collect Date/King e: 07/03/2016 06:20 Test Name Code Test Result Test Units Aurea t Ref Range COLOR YELLOW N/A NL: YELLOW APPEARANCE CLEAR N/A NL: CLEAR SPEC GRAV <=1.005 N/A NL: 1.002 - 1.022 pH 6.0 N/A NL: 5 - 9 PROTEIN NEGATIVE N/A NL: NEGATIVE mg/dl GLUCOSE NEGATIVE N/A NL: NEGATIVE mg/dl KETONE TRACE N/A NL: NEGATIVE m g/dl BILIRUBIN NEGATIVE N/A NL: NEGATI VE BLOOD NEGATIVE N/A NL: NEGATIVE NITRITE NEGATIVE N/A NL: NEGATIVE LEUK SCREEN NEGATIVE N/A NL: NEGA TIVE MICRO INDICATED? NOT INDICATED N/A BNP - Collect Date/Time: 07/03/2016 03:5 0 Test Name Code Test Result Test Units Aurea t Ref Range BNP 14692-8 <10 PG/ML L=0 H=1 00 C REACTIVE PROTEIN - Collect Date/Time: 07/03/2016 03:50 Test Name Code Test Result Test Units Aurea t Ref Range C REACTIVE PROTEIN 1988-5 14.5 MG/DL L=0 .0 H=1.0 TROPONIN-I ADV - Collect Date/Time: 06/16 03:50 Test Name Code Test Result Test Units [place] [address]-3 <0.04 ng/mL L=0.04 H=0.40 INFLUENZA A & B - Collect Date/Time: 03:35 Test Name Code Test Result Test Units Aurea t Ref Range INFLUENZA A & B 6437-8 NO INFLUENZA A OR B DETECTED N/A Function Status Unknown or Not Available. History of Immunizations Immunization Code Date pneumococcal polysaccharide PPV23 33 07/19/2016 Plan of Treatment Unknown or Not Available. Social History Smoking Status Code Start Date End Date Current every day smoker [id number] Vital Signs Unknown or Not Available. Function Status Unknown or Not Available. Goals Unknown or Not Available. ASSESSMENTS Unknown or Not Available. Health Concerns Section Unknown or Not Available.
--- OUTSIDE RECORDS SUMMARY | 2019-10-30 14:26 | XMS REPORT | CCD ---
Author Author DELONTE LUJAN Organization Unknown Address [address] [place], [place] [id number] Care Team Providers Care Learning Support Teacher Name Role Phone FRIONA ER, SJ DO Attphys FRIONA ER, SJ DO Prisurg Vital Signs Unknown or Not Available. Allergies Allergy Code Allergy Type Reaction Status VANCOMYCIN 08035 Drug allergy Activ e Procedures Unknown or Not Available. History of Immunizations Unknown or Not Available. Problems Problem Code Start Date Resolved Date Sta tus Fever 198510579 Active Results Unknown or Not Available. Medications Medication Code Dose Units Frequency Rou te Modification Start Date/Time Stop Date/Time Hydrocodone Bitartrate & Acetaminophen 325MG-10MG Oral Tablet 441561 1 EACH FOUR TIMES A DAY ORAL [place] 325MG-10MG Oral Tablet 266544 1 TABLET FOUR TIMES A DAY ORAL Valium 10MG Oral Tablet 962074 10 MILLIGRAMS NEEDED ORAL Cymbalta 60MG Oral Capsule, Delayed Release 501875 60 MILLIGRAMS DAILY ORAL Medications Administered Unknown or Not Available. 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 Discharge Instructions You were admitted to [facility] on 01/20/2014 with a principal diagnosis of METHICILLIN RESISTANT STAPHYLOCOCCU. You were discharged from [facility] on 01/20/2014. Should you have any questions prior to discharge, please contact a member of your healthcare team. If you have left the hospital and have any questions, please contact your primary care physician. Chief Complaint and Reason For Visit Chief Complaint Date of Onset MEDICAL CLEARANCE Function Status Unknown or Not Available. Referral/Transition of Care Unknown or Not Available.
--- OUTSIDE RECORDS SUMMARY | 2019-10-30 14:26 | XMS REPORT | CCD ---
Author Author DELONTE YUSUF Organization Unknown Address [address] [facility] [address] [place] [address] Care Team Providers Care Physician Practice Coordinator Name Role Phone AIME PALUMBO, LISS Keith Attphys LISS SALOMON MD Prisuuzair Allergies Allergy Code Allergy Type Reaction Status VANCOMYCIN 42080 Drug allergy Activ e Active Medications Medication Code Dose Units Frequency Rou te Modification Start Date/Time flexeril 0 10 MILLIGRAMS THREE TIMES A D AY ORAL 08/17/2016 11:47 Prescription Detail 10 MILLIGRAMS ORAL THREE TI MES A DAY Magnesium Oxide 400MG Oral Tablet 478158 1 T ABLET THREE TIMES A DAY BY MOUTH 08/17/2016 11:46 Prescription Detail 1 TABLET BY MOUTH THREE KING ES A DAY ceFAZolin Sodium-Sodium Chloride 3GM-0.9% Intravenous Solution 57267076234 3 GRAM EVERY 8 HOURS INJECTION 08/17/2016 11:45 Prescription Detail 3 GRAM INJECTION EVERY 8 HO URS Oxazepam 10MG Oral Capsule 801406 1 TABLET DAILY BY MOUTH 08/17/2016 11:44 Prescription Detail 1 TABLET BY MOUTH DAILY HYDROcodone bitartrate-acetaminophen 5MG-325MG Oral Tablet 844180 1 TABLET NEEDED EVERY 6 HR BY MOUTH 08/17/2016 11:43 Prescription Detail 1 TABLET BY MOUTH NEEDED EVERY 6 HR Protonix 40MG Oral Tablet, Enteric Coated 622391 40 MILLIGRAMS DAILY BY MOUTH 08/17/2016 11:43 Prescription Detail 40 MILLIGRAMS BY MOUTH GONZALEZ Y traZODone hydrochloride 50MG Oral Tablet 196092 1 TABLET DAILY BY MOUTH 08/17/2016 11:43 Prescription Detail 1 TABLET BY MOUTH DAILY Furosemide 10MG/1ML Injection Solution 4584288 40 MILLIGRAMS DAILY IVP 08/17/2016 11:42 Prescription Detail 40 MILLIGRAMS IVP DAILY Nicotine Transdermal System 14MG/24HR Transdermal Patc h, Extended Release 403407 14 MILLIGRAMS DAILY TOPICAL APPLICATION 08/17/2016 11:42 Prescription Detail 14 MILLIGRAMS TOPICAL APPLI CATION DAILY Problems Problem Code Start Date Resolved Date Sta tus Sepsis 21217944 08/07/2016 Active Endocarditis 39356902 08/07/2016 Act merline Bacterial sepsis 87802964 04/26/2015 07/29/2016 Resolved Septic pulmonary embolism 141510867 07/29/2016 08/07/2016 Resolved Endocarditis 58479689 07/29/2016 08/07/2016 Resolved Fever 231430741 07/29/2016 Resolved Procedures Procedure Code Procedure Type Date CX CHEST [address] 06/06/2016 CT THORACIC W/O CONTRAST 329322460 SNOMED CT 0 06/06/2016 CT CERVICAL W/O CONTRAST 351749297 SNOMED CT 0 06/06/2016 .ANTIDEPRESSANT UR 238140390 SNOMED CT 017 .METHADONE UR 158387259 SNOMED CT 06/06/2016 .AMP EXPANDED CONF UR 063453824 SNOMED CT 05/19 RAPID DRUG SCREEN 672037023 SNOMED CT 06/06/19 17 Results RAPID DRUG SCREEN - Collect Date/Time: 0 06/06/2016 10:15 Test Name Code Test Result Test Units [...] N/A NEG: < 300 ng/ml Tricyclic Antidepres NON-NEGATIVE N/A NEG: < 300 ng/ml Methadone NON-NEGATIVE N/A NEG: < 300 ng/ml Barbiturates NEGATIVE N/A NEG: < 200 ng/ml Oxycodone NEGATIVE N/A NEG: < 10 0 ng/ml Propoxyphene (PPX) NEGATIVE N/A N EG: < 300 ng/ml Function Status Unknown or Not Available. History of Immunizations Immunization Code Date pneumococcal polysaccharide PPV23 33 07/19/2016 Plan of Treatment Unknown or Not Available. Social History Smoking Status Code Start Date End Date Current every day smoker 235936785 Vital Signs Unknown or Not Available. Function Status Unknown or Not Available. Goals Unknown or Not Available. ASSESSMENTS Unknown or Not Available. Health Concerns Section Unknown or Not Available.
--- OUTSIDE RECORDS SUMMARY | 2019-10-30 14:26 | XMS REPORT | CCD ---
Author Author DELONTE YUSUF Organization Unknown Address [address] [facility] [address] [place] [address] Care Team Providers Care Director Transportation Name Role Phone QUOC JAVIER DO Attphys QUOC JAVIER DO Prisurg Allergies Allergy Code Allergy Type Reaction Status VANCOMYCIN 38894 Drug allergy Activ e Active Medications Medication Code Dose Units Frequency Rou te Modification Start Date/Time flexeril 0 10 MILLIGRAMS THREE TIMES A D AY ORAL 08/17/2016 11:47 Prescription Detail 10 MILLIGRAMS ORAL THREE TI MES A DAY Magnesium Oxide 400MG Oral Tablet 212536 1 T ABLET THREE TIMES A DAY BY MOUTH 08/17/2016 11:46 Prescription Detail 1 TABLET BY MOUTH THREE KING ES A DAY ceFAZolin Sodium-Sodium Chloride 3GM-0.9% Intravenous Solution 87479668777 3 GRAM EVERY 8 HOURS INJECTION 08/17/2016 11:45 Prescription Detail 3 GRAM INJECTION EVERY 8 HO URS Oxazepam 10MG Oral Capsule 842167 1 TABLET DAILY BY MOUTH 08/17/2016 11:44 Prescription Detail 1 TABLET BY MOUTH DAILY HYDROcodone bitartrate-acetaminophen 5MG-325MG Oral Tablet 232711 1 TABLET NEEDED EVERY 6 HR BY MOUTH 08/17/2016 11:43 Prescription Detail 1 TABLET BY MOUTH NEEDED EVERY 6 HR Protonix 40MG Oral Tablet, Enteric Coated 264999 40 MILLIGRAMS DAILY BY MOUTH 08/17/2016 11:43 Prescription Detail 40 MILLIGRAMS BY MOUTH GONZALEZ Y traZODone hydrochloride 50MG Oral Tablet 320586 1 TABLET DAILY BY MOUTH 08/17/2016 11:43 Prescription Detail 1 TABLET BY MOUTH DAILY Furosemide 10MG/1ML Injection Solution 5962686 40 MILLIGRAMS DAILY IVP 08/17/2016 11:42 Prescription Detail 40 MILLIGRAMS IVP DAILY Nicotine Transdermal System 14MG/24HR Transdermal Patc h, Extended Release 826735 14 MILLIGRAMS DAILY TOPICAL APPLICATION 08/17/2016 11:42 Prescription Detail 14 MILLIGRAMS TOPICAL APPLI CATION DAILY Problems Problem Code Start Date Resolved Date Sta tus Sepsis 11789346 08/07/2016 Active Endocarditis 73939051 08/07/2016 Act merline Bacterial sepsis 08420794 04/26/2015 07/29/2016 Resolved Septic pulmonary embolism 776163761 07/29/2016 08/07/2016 Resolved Endocarditis 60447318 07/29/2016 08/07/2016 Resolved Fever 120452890 07/29/2016 Resolved Procedures Procedure Code Procedure Type Date CX CHEST 2 VIEWS 390338062 [facility] 7 RAPID DRUG SCREEN 797797666 [facility] CT 06/18/19 17 C REACTIVE PROTEIN 37967859 [facility] 017 CULTURE BLOOD 94871970 [facility] 06/17/2016 LACTIC ACID [id number] [facility] 06/17/2016 TROPONIN-I ADV [id number] [facility] 06/17/2016 COMPREHENSIVE METABOLIC PANEL 402861141 [facility] 06/17/2016 CBC W/ AUTO DIFF (RFLX MAN DIFF IF IND) 8895047 [facility] 06/17/2016 ^CULTURE AEROBIC ID [id number] [facility] 2016 ^SENSITIVITY 835644865 [facility] CT 06/17/2016 ^CBC W/AUTO DIFF 7023131 [facility] CT 7 Results COMPREHENSIVE METABOLIC PANEL - Collect Date/Time: 06/17/2016 10:50 Test Name Code Test Result Test Units Aurea t Ref Range GLUCOSE 2345-7 88 MG/DL L=70 H=1 00 SODIUM 2951-2 140 MEQ/L L=135 H=14 8 POTASSIUM 2823-3 3.8 MEQ/L L=3.5 H =5.3 CHLORIDE 2075-0 102 MEQ/L L=96 H= 110 CO2 2028-9 26 MEQ/L L=22 H=29 BUN 3094-0 23 MG/DL L=8 H=22 CREATININE 2160-0 0.8 MG/DL L=0.6 H=1.6 SGOT/AST 1920-8 23 IU/L L=10 H= 40 SGPT/ALT 1742-6 21 IU/L L=8 H= 54 ALK PHOS 6768-6 138 IU/L L=35 H= 115 TOTAL PROTEIN 2885-2 8.9 G/DL L=5.5 H=8.5 ALBUMIN 1751-7 4.0 G/DL L=3.1 H=5 .4 TOTAL BILI 1975-2 0.7 MG/DL L=0.0 H=1.5 CALCIUM 17330-5 9.5 MG/DL L=8.2 H= 10.6 AGE 40 yrs GFR NonAA 107 GFR AA 130 eGFR >60 N/A eGFR AA* >60 N/A RAPID DRUG SCREEN - Collect Date/Time: 0 06/17/2016 11:30 Test Name Code Test Result Test Units [...] MAN DIFF IF IND) - Collect Date/Time: 06/17/2016 10:50 Test Name Code Test Result Test Units Aurea t Ref Range WBC 97960-7 10.5 TH/CMM L=4.5 H=1 0.8 RBC 789-8 4.90 ML/CMM L=4.70 H=6. 10 HGB 718-7 12.3 G/DL L=14.0 H=18 .0 HCT 4544-3 38.7 % L=42.0 H=52 .0 MCV 79 FL L=81 H=99 MCH 25.1 PG L=27.0 H=33 .0 MCHC 31.8 G/DL L=31.0 H=36 .0 RDW SD 50 FL L=36 H=50 RDW CV 17.2 % L=0.0 H=14 .8 MPV 8.6 FL L=9.3 H=12 .5 PLT 777-3 529 TH/CMM L=130 H=44 0 NRBC# 0.00 TH/CMM L=0.00 H=0. 00 NRBC% 0.0 /100WBC L=0.0 H=2 .0 %NEUT 78.4 % %LYMP 14.2 % %MONO 5.7 % %EOS 1.0 % %BASO 0.4 % #NEUT 8.25 TH/CMM L=2.10 H=8. 20 #LYMP 1.49 TH/CMM L=0.90 H=5. 20 #MONO 0.60 TH/CMM L=0.16 H=1. 00 #EOS 0.10 TH/CMM L=0.00 H=0. 80 #BASO 0.04 TH/CMM L=0.00 H=0. 20 MANUAL DIFF NOT IND N/A RESPIRATORY PANEL - Collect Date/Time: 0 06/17/2016 10:50 Test Name Code Test Result Test Units Aurea t Ref Range Adenovirus Not Detected N/A NEG: Not Detected Coronavirus 229E Not Detected N/A NEG: Not Detected Coronavirus HKU1 Not Detected N/A NEG: Not Detected Coronavirus NL63 Not Detected N/A NEG: Not Detected Coronavirus OC43 Not Detected N/A NEG: Not Detected Human Metapneumoviru Not Detected N/A NEG: Not Detected Human Rhinov/Enterov Not Detected N/A NEG: Not Detected Influenza A Not Detected N/A NEG: Not Detected Influenza B Not Detected N/A NEG: Not Detected Parainfluenza Virus1 Not Detected N/A NEG: Not Detected Parainfluenza Virus2 Not Detected N/A NEG: Not Detected Parainfluenza Virus3 Not Detected N/A NEG: Not Detected Parainfluenza Virus4 Not Detected N/A NEG: Not Detected Resp Syncytial Virus Not Detected N/A NEG: Not Detected Bordetella pertussis Not Detected N/A NEG: Not Detected Chlamydophila pneumo Not Detected N/A NEG: Not Detected Mycoplasma pneumonia Not Detected N/A NEG: Not Detected C REACTIVE PROTEIN - Collect Date/Time: 06/17/2016 10:50 Test Name Code Test Result Test Units Aurea t Ref Range C REACTIVE PROTEIN 1987-08 21.2 MG/DL L=0 .0 H=1.0 TROPONIN-I ADV - Collect Date/Time: 05/2016 10:50 Test Name Code Test Result Test Units [place] [address]-7 <0.04 ng/mL L=0.04 H=0.40 LACTIC ACID - Collect Date/Time: 017 10:50 Test Name Code Test Result Test Units Aurea t Ref Range LACTIC ACID 2524-7 1.7 mmol/L L=0.5 H=1.6 Function Status Unknown or Not Available. History of Immunizations Immunization Code Date pneumococcal polysaccharide PPV23 33 07/19/2016 Plan of Treatment Unknown or Not Available. Social History Smoking Status Code Start Date End Date Current every day smoker 511312627 Vital Signs Unknown or Not Available. Function Status Unknown or Not Available. Goals Unknown or Not Available. ASSESSMENTS Unknown or Not Available. Health Concerns Section Unknown or Not Available.
--- OUTSIDE RECORDS SUMMARY | 2019-10-30 14:26 | XMS REPORT | CCD ---
Author Author DELONTE YUSUF Organization Unknown Address [address] [facility] [address] [place] [address] Care Team Providers Care Derrick Follower Name Role Phone AIME PALUMBO, LISS Keith Attphys LISS SALOMON MD Prisuuzair Allergies Allergy Code Allergy Type Reaction Status VANCOMYCIN 65729 Drug allergy Activ e Active Medications Medication Code Dose Units Frequency Rou te Modification Start Date/Time flexeril 0 10 MILLIGRAMS THREE TIMES A D AY ORAL 08/17/2016 11:47 Prescription Detail 10 MILLIGRAMS ORAL THREE TI MES A DAY Magnesium Oxide 400MG Oral Tablet 995225 1 T ABLET THREE TIMES A DAY BY MOUTH 08/17/2016 11:46 Prescription Detail 1 TABLET BY MOUTH THREE KING ES A DAY ceFAZolin Sodium-Sodium Chloride 3GM-0.9% Intravenous Solution 29899685635 3 GRAM EVERY 8 HOURS INJECTION 08/17/2016 11:45 Prescription Detail 3 GRAM INJECTION EVERY 8 HO URS Oxazepam 10MG Oral Capsule 467049 1 TABLET DAILY BY MOUTH 08/17/2016 11:44 Prescription Detail 1 TABLET BY MOUTH DAILY HYDROcodone bitartrate-acetaminophen 5MG-325MG Oral Tablet 085451 1 TABLET NEEDED EVERY 6 HR BY MOUTH 08/17/2016 11:43 Prescription Detail 1 TABLET BY MOUTH NEEDED EVERY 6 HR Protonix 40MG Oral Tablet, Enteric Coated 840593 40 MILLIGRAMS DAILY BY MOUTH 08/17/2016 11:43 Prescription Detail 40 MILLIGRAMS BY MOUTH GONZALEZ Y traZODone hydrochloride 50MG Oral Tablet 665972 1 TABLET DAILY BY MOUTH 08/17/2016 11:43 Prescription Detail 1 TABLET BY MOUTH DAILY Furosemide 10MG/1ML Injection Solution 0379249 40 MILLIGRAMS DAILY IVP 08/17/2016 11:42 Prescription Detail 40 MILLIGRAMS IVP DAILY Nicotine Transdermal System 14MG/24HR Transdermal Patc h, Extended Release 942869 14 MILLIGRAMS DAILY TOPICAL APPLICATION 08/17/2016 11:42 Prescription Detail 14 MILLIGRAMS TOPICAL APPLI CATION DAILY Problems Problem Code Start Date Resolved Date Sta tus Sepsis 72852005 08/07/2016 Active Endocarditis 95281347 08/07/2016 Act merline Bacterial sepsis 17410322 04/26/2015 07/29/2016 Resolved Septic pulmonary embolism 163039423 07/29/2016 08/07/2016 Resolved Endocarditis 03750323 07/29/2016 08/07/2016 Resolved Fever 797359242 07/29/2016 Resolved Procedures Procedure Code Procedure Type Date CX CHEST [address] 06/06/2016 CT THORACIC W/O CONTRAST 376719845 SNOMED CT 0 06/06/2016 CT CERVICAL W/O CONTRAST 832143972 SNOMED CT 0 06/06/2016 .ANTIDEPRESSANT UR 863871711 SNOMED CT 017 .METHADONE UR 405533665 SNOMED CT 06/06/2016 .AMP EXPANDED CONF UR 498774624 SNOMED CT 05/19 RAPID DRUG SCREEN 552573662 SNOMED CT 06/06/19 17 Results RAPID DRUG [...] Date End Date Current every day smoker 515266512 Vital Signs Unknown or Not Available. Function Status Unknown or Not Available. Goals Unknown or Not Available. ASSESSMENTS Unknown or Not Available. Health Concerns Section Unknown or Not Available.
--- OUTSIDE RECORDS SUMMARY | 2019-10-30 14:26 | XMS REPORT | CCD ---
Author Author DELONTE YUSUF Organization Unknown Address [address] [place] [address] Care Team Providers Care [employer] Name Role Phone BOUBACAR GEORGE MD Attphys [phone] BOUBACAR GEORGE MD Prisurg [phone] Allergies Allergy Code Allergy Type Reaction Status VANCOMYCIN 97486 Drug allergy Activ e Active Medications Medication Code Dose Units Frequency Rou te Modification Start Date/Time flexeril 0 10 MILLIGRAMS THREE TIMES A D AY ORAL 08/17/2016 11:47 Prescription Detail 10 MILLIGRAMS ORAL THREE TI MES A DAY Magnesium Oxide 400MG Oral Tablet 550628 1 T ABLET THREE TIMES A DAY BY MOUTH 08/17/2016 11:46 Prescription Detail 1 TABLET BY MOUTH THREE KING ES A DAY ceFAZolin Sodium-Sodium Chloride 3GM-0.9% Intravenous Solution 70771209712 3 GRAM EVERY 8 HOURS INJECTION 08/17/2016 11:45 Prescription Detail 3 GRAM INJECTION EVERY 8 HO URS Oxazepam 10MG Oral Capsule 253343 1 TABLET DAILY BY MOUTH 08/17/2016 11:44 Prescription Detail 1 TABLET BY MOUTH DAILY HYDROcodone bitartrate-acetaminophen 5MG-325MG Oral Tablet 289737 1 TABLET NEEDED EVERY 6 HR BY MOUTH 08/17/2016 11:43 Prescription Detail 1 TABLET BY MOUTH NEEDED EVERY 6 HR Protonix 40MG Oral Tablet, Enteric Coated 426364 40 MILLIGRAMS DAILY BY MOUTH 08/17/2016 11:43 Prescription Detail 40 MILLIGRAMS BY MOUTH GONZALEZ Y traZODone hydrochloride 50MG Oral Tablet 794308 1 TABLET DAILY BY MOUTH 08/17/2016 11:43 Prescription Detail 1 TABLET BY MOUTH DAILY Furosemide 10MG/1ML Injection Solution 8020772 40 MILLIGRAMS DAILY IVP 08/17/2016 11:42 Prescription Detail 40 MILLIGRAMS IVP DAILY Nicotine Transdermal System 14MG/24HR Transdermal Patc h, Extended Release 822506 14 MILLIGRAMS DAILY TOPICAL APPLICATION 08/17/2016 11:42 Prescription Detail 14 MILLIGRAMS TOPICAL APPLI CATION DAILY Problems Problem Code Start Date Resolved Date Sta tus Sepsis 80049570 08/07/2016 Active Endocarditis 84431302 08/07/2016 Act merline Bacterial sepsis 10190638 04/26/2015 07/29/2016 Resolved Septic pulmonary embolism 988075839 07/29/2016 08/07/2016 Resolved Endocarditis 91459739 07/29/2016 08/07/2016 Resolved Fever 103451256 07/29/2016 Resolved Procedures Procedure Code Procedure Type Date CX CHEST [address] 06/08/2016 INFLUENZA A & B 336109465 SNOMED CT 06/08/2016 Results INFLUENZA A & B - Collect Date/Time: 23:25 Test Name Code Test Result Test Units Aurea t Ref Range INFLUENZA A & B 6437-8 NO INFLUENZA A OR B DETECTED N/A Function Status Unknown or Not Available. History of Immunizations Immunization Code Date pneumococcal polysaccharide PPV23 33 07/19/2016 Plan of Treatment Unknown or Not Available. Social History Smoking Status Code Start Date End Date Current every day smoker 223116485 Vital Signs Unknown or Not Available. Function Status Unknown or Not Available. Goals Unknown or Not Available. ASSESSMENTS Unknown or Not Available. Health Concerns Section Unknown or Not Available.
--- OUTSIDE RECORDS SUMMARY | 2019-10-30 14:26 | XMS REPORT | CCD ---
Author Author DELONTE LUJAN Organization Unknown Address [address] [facility] [address] [place], [place] [address] Care Team Providers Care Occupational Therapy Co Director Name Role Phone SHERYL JESUS MD Attphys Vital Signs Unknown or Not Available. Allergies Unknown or Not Available. Procedures Procedure Code Procedure Type Date VENOUS CATHETER NEC 3893 ICD-9 CM, Volume 3 01/10/2014 CX CHEST [address] 01/10/2014 History of Immunizations Unknown or Not Available. Problems Problem Code Start Date Resolved Date Sta tus Fever 059855222 Active Results Unknown or Not Available. Medications Medication Code Dose Units Frequency Rou te Modification Start Date/Time Stop Date/Time Gabapentin 800MG Oral Tablet 589903 800 MILLIG ANTONIO TWO TIMES A DAY ORAL Doxepin 10MG Oral Capsule 2770511 10 MILLIGRA MS DAILY ORAL Fluconazole 200MG Oral Tablet 200 FELISA GRAMS DAILY ORAL Acetaminophen 500MG Oral Capsule 112118 500 VA LLIGRAMS NEEDED ORAL Captopril 100MG Oral Tablet 902007 100 MILLIGR AMS DAILY ORAL VALIUM 0 MILLIGRAMS NEEDED ORAL BACLOFEN 0 10 MILLIGRAMS NEEDED OR AL Atenolol 50MG Oral Tablet 242959 50 MILLIGRAM S DAILY ORAL Dilaudid 4MG Oral Tablet 385912 4 MILLIGRAMS FOUR TIMES A DAY ORAL Hydrocodone Bitartrate & Acetaminophen 325MG-10MG Oral Tablet 801178 1 EACH FOUR TIMES A DAY ORAL Dilaudid 4MG Oral Tablet 283372 4 MILLIGRAMS FOUR TIMES A DAY ORAL [place] 325MG-10MG Oral Tablet 892636 1 TABLET FOUR TIMES A DAY ORAL Medications Administered Unknown or Not Available. Encounters Encounter Diagnosis Diagnosis Code Start Date FIT ADJ VASCULAR CATH V5881 01/10/2014 Social History Smoking Status Code Start Date End Date Current every day smoker 542631354 Patient Decision Aids Unknown or Not Available. Discharge Instructions You were admitted to [facility] on 01/10/2014 with a principal diagnosis of FIT ADJ VASCULAR CATH. You had the following procedures done: INSERT PICC CATH You were discharged from [facility] on 01/10/2014. Should you have any questions prior to discharge, please contact a member of your healthcare team. If you have left the hospital and have any questions, please contact your primary care physician. Chief Complaint and Reason For Visit Chief Complaint Date of Onset ANES PICC LINE Function Status Unknown or Not Available. Plan of Care Unknown or Not Available. Referral/Transition of Care Unknown or Not Available.
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
--- OUTSIDE RECORDS SUMMARY | 2019-10-30 14:27 | XMS REPORT | CCD ---
Author Author DELONTE LUJAN Organization Unknown Address [address] [place], [place] [address] Care Team Providers Care Wedger And Gluer Name Role Phone GREGG MEHTA MD Attphys Vital Signs Unknown or Not Available. Allergies Allergy Code Allergy Type Reaction Status VANCOMYCIN 99383 Drug allergy Activ e Procedures Procedure Code Procedure Type Date INSERTION OF IMPLANTABLE VASCULAR 8607 ICD-9 CM , Volume 3 01/16/2014 VENOUS CATHETER NEC 3893 ICD-9 CM, Volume 3 01/16/2014 CX CHEST [address] 01/16/2014 History of Immunizations Unknown or Not Available. Problems Problem Code Start Date Resolved Date Sta tus Fever 091589177 Active Results Unknown or Not Available. Medications Medication Code Dose Units Frequency Rou te Modification Start Date/Time Stop Date/Time Cymbalta 60MG Oral Capsule, Delayed Release 114382 60 MILLIGRAMS DAILY ORAL Valium 10MG Oral Tablet 521674 10 MILLIGRAMS NEEDED ORAL [place] 325MG-10MG Oral Tablet 099392 1 TABLET FOUR TIMES A DAY ORAL Hydrocodone Bitartrate & Acetaminophen 325MG-10MG Oral Tablet 708561 1 EACH FOUR TIMES A DAY ORAL Medications Administered Unknown or Not Available. Encounters Encounter Diagnosis Diagnosis Code Start Date FIT ADJ VASCULAR CATH V5881 01/16/2014 Social History Smoking Status Code Start Date End Date Current every day smoker 059801882 Patient Decision Aids Unknown or Not Available. Discharge Instructions You were admitted to [facility] on 01/16/2014 with a principal diagnosis of FIT ADJ VASCULAR CATH. You had the following procedures done: REPLACE PICC CATH VENOUS CATHETER NEC You were discharged from [facility] on 01/16/2014. Should you have any questions prior to discharge, please contact a member of your healthcare team. If you have left the hospital and have any questions, please contact your primary care physician. Chief Complaint and Reason For Visit Chief Complaint Date of Onset ANES PICC LINE PLACEMENT Function Status Unknown or Not Available. Plan of Care Unknown or Not Available. Referral/Transition of Care Unknown or Not Available.
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
--- OUTSIDE RECORDS SUMMARY | 2019-10-30 14:28 | XMS REPORT | Continuity of Care Document ---
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 28 mg/dL 9-20 GLUCOSE 132 mg/dL 75-110 CALCIUM 8.6 mg/dL 8.4-10.2 BILIRUBIN,TOTAL 2.3 mg/dL 0.2-1.3 ASPARTATE AMINO TRANSFERASE 29 U/L 17 -59 ALANINE AMINOTRANSFERASE 22 U/L 21-72 TOTAL PROTEIN 7.5 g/dL 6.3-8.2 ALBUMIN 3.2 g/dL 3.5-5.0 ALKP 106 U/L 38-126 BUN/CREATININE RATIO 20.1 6.0-26.0 CREATININE 1.4 mg/dL 0.8-1.5 Age at Specimen Collection = a eGFR 68 eGFR non 56 MAGNESIUM - 11/02/16 09:55 MAGNESIUM 2.30 mg/dL 1.60-2.30 Age at Specimen Collection = a EOSINOPHIL COUNT, URINE - 11/04/16 16:53 EOSINOPHIL COUNT, URINE AMS Age at Specimen Collection = a CBC WITH AUTOMATED DIFF - 11/05/16 08:14 WHITE BLOOD COUNT 8.7 K/mm3 4.8-10.8 RED BLOOD COUNT 3.77 M/mm3 4.20-5.60 HEMOGLOBIN 9.3 g/dL 13.5-18.0 HEMATOCRIT 30.0 % 42.0-52.0 MEAN CORPUSCULAR VOLUME 80 fl 78-100 MEAN CORPUSCULAR HEMOGLOBIN 25 pg 27 -31 MEAN CORPUSCULAR HGB CONC 31 g/dL 33-3 7 RED CELL DISTRIBUTION WIDTH 19.5 % 11 .5-14.5 PLATELET COUNT 378 K/mm3 130-400 MEAN PLATELET VOLUME 8.9 fl 7.4-10.4 NEUTROPHILS % (AUTO) 64.1 % 42.0-75.2 LYMPHOCYTES % (AUTO) 24.3 % 20.0-51.0 MONOCYTES % (AUTO) 7.8 % 1.0-10.0 EOSINOPHILS % (AUTO) 3.1 % 0.0-4.0 BASOPHILS % (AUTO) 0.5 % 0.0-2.0 NEUTROPHILS # (AUTO) 5.6 1.40-6.50 LYMPHOCYTES # (AUTO) 2.1 1.50-4.00 MONOCYTES # (AUTO) 0.7 0.20-0.80 EOSINOPHILS # (AUTO) 0.3 0.04-0.40 BASOPHILS # (AUTO) 0.0 0.02-0.10 ADD MANUAL DIFF NO Age at Specimen Collection = a BASIC METABOLIC PANEL - 11/05/16 08:14 SODIUM 137 mmol/L 137-145 POTASSIUM 5.0 mmol/L 3.6-5.0 CHLORIDE 98 mmol/L 98-107 CARBON DIOXIDE 29 mmol/L 22-30 BLOOD UREA NITROGEN 28 mg/dL 9-20 GLUCOSE 97 mg/dL 75-110 CALCIUM 8.9 mg/dL 8.4-10.2 BUN/CREATININE RATIO 20.5 6.0-26.0 CREATININE 1.4 mg/dL 0.8-1.5 Age at Specimen Collection = a eGFR 68 eGFR non 56 GAMMA GLUTAMYL TRANSPEPTIDASE - 11/05/16 08:14 GAMMA GLUTAMYL TRANSFERASE [facility] Age at Specimen Collection = a LIVER PROFILE (HEPATIC PANEL) - 11/05/16 08:14 BILIRUBIN,TOTAL 1.9 mg/dL 0.2-1.3 BILIRUBIN,DIRECT 1.8 mg/dL 0.0-0.4 ASPARTATE AMINO TRANSFERASE 22 U/L 17 -59 ALANINE AMINOTRANSFERASE 20 U/L 21-72 TOTAL PROTEIN 7.5 g/dL 6.3-8.2 ALBUMIN 3.3 g/dL 3.5-5.0 A/G RATIO 1.8 1.1-2.2 ALKP 111 U/L 38-126 BILIRUBIN UNCONJUGATED 0.1 mg/dL 0.0-0.6 Age at Specimen Collection = a COMPREHENSIVE METABOLIC PANEL - 11/09/16 05:51 SODIUM 141 mmol/L 137-145 POTASSIUM 5.0 mmol/L 3.6-5.0 CHLORIDE 104 mmol/L 98-107 CARBON DIOXIDE 28 mmol/L 22-30 BLOOD UREA NITROGEN 21 mg/dL 9-20 GLUCOSE 110 mg/dL 75-110 CALCIUM 9.1 mg/dL 8.4-10.2 BILIRUBIN,TOTAL 2.2 mg/dL 0.2-1.3 ASPARTATE AMINO TRANSFERASE 29 U/L 17 -59 ALANINE AMINOTRANSFERASE 18 U/L 21-72 TOTAL PROTEIN 8.0 g/dL 6.3-8.2 ALBUMIN 3.4 g/dL 3.5-5.0 ALKP 125 U/L 38-126 BUN/CREATININE RATIO 17.9 6.0-26.0 CREATININE 1.2 mg/dL 0.8-1.5 Age at Specimen Collection = a eGFR 80 eGFR non 66 CBC WITH AUTOMATED DIFF - 11/09/16 05:51 WHITE BLOOD COUNT 12.1 K/mm3 4.8-10.8 RED BLOOD COUNT 4.11 M/mm3 4.20-5.60 HEMOGLOBIN 10.2 g/dL 13.5-18.0 HEMATOCRIT 32.7 % 42.0-52.0 MEAN CORPUSCULAR VOLUME 80 fl 78-100 MEAN CORPUSCULAR HEMOGLOBIN 25 pg 27 -31 MEAN CORPUSCULAR HGB CONC 31 g/dL 33-3 7 RED CELL DISTRIBUTION WIDTH 19.2 % 11 .5-14.5 PLATELET COUNT 541 K/mm3 130-400 MEAN PLATELET VOLUME 8.4 fl 7.4-10.4 NEUTROPHILS % (AUTO) 66.1 % 42.0-75.2 LYMPHOCYTES % (AUTO) 21.7 % 20.0-51.0 MONOCYTES % (AUTO) 7.8 % 1.0-10.0 EOSINOPHILS % (AUTO) 3.4 % 0.0-4.0 BASOPHILS % (AUTO) 0.6 % 0.0-2.0 NEUTROPHILS # (AUTO) 8.0 1.40-6.50 LYMPHOCYTES # (AUTO) 2.6 1.50-4.00 MONOCYTES # (AUTO) 1.0 0.20-0.80 EOSINOPHILS # (AUTO) 0.4 0.04-0.40 BASOPHILS # (AUTO) 0.1 0.02-0.10 ADD MANUAL DIFF NO Age at Specimen Collection = a CBC WITH AUTOMATED DIFF - 11/12/16 06:00 WHITE BLOOD COUNT 9.5 K/mm3 4.8-10.8 RED BLOOD COUNT 4.21 M/mm3 4.20-5.60 HEMOGLOBIN 10.4 g/dL 13.5-18.0 HEMATOCRIT 33.0 % 42.0-52.0 MEAN CORPUSCULAR VOLUME 78 fl 78-100 MEAN CORPUSCULAR HEMOGLOBIN 25 pg 27 -31 MEAN CORPUSCULAR HGB CONC 32 g/dL 33-3 7 RED CELL DISTRIBUTION WIDTH 19.1 % 11 .5-14.5 PLATELET COUNT 566 K/mm3 130-400 MEAN PLATELET VOLUME 8.7 fl 7.4-10.4 NEUTROPHILS % (AUTO) 55.7 % 42.0-75.2 LYMPHOCYTES % (AUTO) 32.4 % 20.0-51.0 MONOCYTES % (AUTO) 7.1 % 1.0-10.0 EOSINOPHILS % (AUTO) 3.6 % 0.0-4.0 BASOPHILS % (AUTO) 0.8 % 0.0-2.0 NEUTROPHILS # (AUTO) 5.3 1.40-6.50 LYMPHOCYTES # (AUTO) 3.1 1.50-4.00 MONOCYTES # (AUTO) 0.7 0.20-0.80 EOSINOPHILS # (AUTO) 0.3 0.04-0.40 BASOPHILS # (AUTO) 0.1 0.02-0.10 ADD MANUAL DIFF NO Age at Specimen Collection = a COMPREHENSIVE METABOLIC PANEL - 11/12/16 06:00 SODIUM 139 mmol/L 137-145 POTASSIUM 4.7 mmol/L 3.6-5.0 CHLORIDE 103 mmol/L 98-107 CARBON DIOXIDE 26 mmol/L 22-30 BLOOD UREA NITROGEN 26 mg/dL 9-20 GLUCOSE 109 mg/dL 75-110 CALCIUM 9.4 mg/dL 8.4-10.2 BILIRUBIN,TOTAL 2.2 mg/dL 0.2-1.3 ASPARTATE AMINO TRANSFERASE 32 U/L 17 -59 ALANINE AMINOTRANSFERASE 15 U/L 21-72 TOTAL PROTEIN 8.1 g/dL 6.3-8.2 ALBUMIN 3.5 g/dL 3.5-5.0 ALKP 115 U/L 38-126 BUN/CREATININE RATIO 20.9 6.0-26.0 CREATININE 1.3 mg/dL 0.8-1.5 Age at Specimen Collection = a eGFR 74 eGFR non 61 CBC WITH AUTOMATED DIFF - 11/16/16 04:40 WHITE BLOOD COUNT 8.4 K/mm3 4.8-10.8 RED BLOOD COUNT 4.16 M/mm3 4.20-5.60 HEMOGLOBIN 10.3 g/dL 13.5-18.0 HEMATOCRIT 33.0 % 42.0-52.0 MEAN CORPUSCULAR VOLUME 79 fl 78-100 MEAN CORPUSCULAR HEMOGLOBIN 25 pg 27 -31 MEAN CORPUSCULAR HGB CONC 31 g/dL 33-3 7 RED CELL DISTRIBUTION WIDTH 19.4 % 11 .5-14.5 PLATELET COUNT 405 K/mm3 130-400 MEAN PLATELET VOLUME 9.1 fl 7.4-10.4 NEUTROPHILS % (AUTO) 48.7 % 42.0-75.2 LYMPHOCYTES % (AUTO) 39.1 % 20.0-51.0 MONOCYTES % (AUTO) 8.3 % 1.0-10.0 EOSINOPHILS % (AUTO) 2.6 % 0.0-4.0 BASOPHILS % (AUTO) 1.1 % 0.0-2.0 NEUTROPHILS # (AUTO) 4.1 1.40-6.50 LYMPHOCYTES # (AUTO) 3.3 1.50-4.00 MONOCYTES # (AUTO) 0.7 0.20-0.80 EOSINOPHILS # (AUTO) 0.2 0.04-0.40 BASOPHILS # (AUTO) 0.1 0.02-0.10 ADD MANUAL DIFF NO Age at Specimen Collection = a COMPREHENSIVE METABOLIC PANEL - 11/16/16 04:40 SODIUM 138 mmol/L 137-145 POTASSIUM 5.0 mmol/L 3.6-5.0 CHLORIDE 104 mmol/L 98-107 CARBON DIOXIDE 27 mmol/L 22-30 BLOOD UREA NITROGEN 29 mg/dL 9-20 GLUCOSE 89 mg/dL 75-110 CALCIUM 9.3 mg/dL 8.4-10.2 BILIRUBIN,TOTAL 1.8 mg/dL 0.2-1.3 ASPARTATE AMINO TRANSFERASE 34 U/L 17 -59 ALANINE AMINOTRANSFERASE 17 U/L 21-72 TOTAL PROTEIN 7.6 g/dL 6.3-8.2 ALBUMIN 3.3 g/dL 3.5-5.0 ALKP 98 U/L 38-126 BUN/CREATININE RATIO 25.5 6.0-26.0 CREATININE 1.1 mg/dL 0.8-1.5 Age at Specimen Collection = a eGFR 88 eGFR non 73 CBC WITH AUTOMATED DIFF - 11/19/16 07:10 WHITE BLOOD COUNT 8.5 K/mm3 4.8-10.8 RED BLOOD COUNT 4.18 M/mm3 4.20-5.60 HEMOGLOBIN 10.5 g/dL 13.5-18.0 HEMATOCRIT 33.6 % 42.0-52.0 MEAN CORPUSCULAR VOLUME 80 fl 78-100 MEAN CORPUSCULAR HEMOGLOBIN 25 pg 27 -31 MEAN CORPUSCULAR HGB CONC 31 g/dL 33-3 7 RED CELL DISTRIBUTION WIDTH 20.7 % 11 .5-14.5 PLATELET COUNT 351 K/mm3 130-400 MEAN PLATELET VOLUME 9.4 fl 7.4-10.4 NEUTROPHILS % (AUTO) 51.2 % 42.0-75.2 LYMPHOCYTES % (AUTO) 35.5 % 20.0-51.0 MONOCYTES % (AUTO) 9.4 % 1.0-10.0 EOSINOPHILS % (AUTO) 2.8 % 0.0-4.0 BASOPHILS % (AUTO) 0.9 % 0.0-2.0 NEUTROPHILS # (AUTO) 4.4 1.40-6.50 LYMPHOCYTES # (AUTO) 3.0 1.50-4.00 MONOCYTES # (AUTO) 0.8 0.20-0.80 EOSINOPHILS # (AUTO) 0.2 0.04-0.40 BASOPHILS # (AUTO) 0.1 0.02-0.10 ADD MANUAL DIFF NO Age at Specimen Collection = a COMPREHENSIVE METABOLIC PANEL - 11/19/16 07:10 SODIUM 139 mmol/L 137-145 POTASSIUM 4.8 mmol/L 3.6-5.0 CHLORIDE 103 mmol/L 98-107 CARBON DIOXIDE 30 mmol/L 22-30 BLOOD UREA NITROGEN 25 mg/dL 9-20 GLUCOSE 79 mg/dL 75-110 CALCIUM 9.0 mg/dL 8.4-10.2 BILIRUBIN,TOTAL 2.1 mg/dL 0.2-1.3 ASPARTATE AMINO TRANSFERASE 44 U/L 17 -59 ALANINE AMINOTRANSFERASE 38 U/L 21-72 TOTAL PROTEIN 7.2 g/dL 6.3-8.2 ALBUMIN 3.2 g/dL 3.5-5.0 ALKP 86 U/L 38-126 BUN/CREATININE RATIO 20.8 6.0-26.0 CREATININE 1.2 mg/dL 0.8-1.5 Age at Specimen Collection = a eGFR 80 eGFR non 66 C-REACTIVE PROTEIN - 11/21/16 09:50 hs C REACTIVE PROTEIN 4.0 mg/dL 0.0-0.9 BASIC METABOLIC PANEL - 11/21/16 09:50 SODIUM 135 mmol/L 137-145 POTASSIUM 4.5 mmol/L 3.6-5.0 CHLORIDE 100 mmol/L 98-107 CARBON DIOXIDE 27 mmol/L 22-30 BLOOD UREA NITROGEN 21 mg/dL 9-20 GLUCOSE 153 mg/dL 75-110 CALCIUM 8.6 mg/dL 8.4-10.2 BUN/CREATININE RATIO 17.2 6.0-26.0 CREATININE 1.2 mg/dL 0.8-1.5 Age at Specimen Collection = a eGFR 80 eGFR non 66 CBC WITH AUTOMATED DIFF - 11/21/16 09:50 WHITE BLOOD COUNT 6.5 K/mm3 4.8-10.8 RED BLOOD COUNT 4.15 M/mm3 4.20-5.60 HEMOGLOBIN 10.4 g/dL 13.5-18.0 HEMATOCRIT 33.3 % 42.0-52.0 MEAN CORPUSCULAR VOLUME 80 fl 78-100 MEAN CORPUSCULAR HEMOGLOBIN 25 pg 27 -31 MEAN CORPUSCULAR HGB CONC 31 g/dL 33-3 7 RED CELL DISTRIBUTION WIDTH 21.6 % 11 .5-14.5 PLATELET COUNT 298 K/mm3 130-400 MEAN PLATELET VOLUME 9.4 fl 7.4-10.4 NEUTROPHILS % (AUTO) 50.6 % 42.0-75.2 LYMPHOCYTES % (AUTO) 38.0 % 20.0-51.0 MONOCYTES % (AUTO) 6.3 % 1.0-10.0 EOSINOPHILS % (AUTO) 3.8 % 0.0-4.0 BASOPHILS % (AUTO) 1.1 % 0.0-2.0 NEUTROPHILS # (AUTO) 3.3 1.40-6.50 LYMPHOCYTES # (AUTO) 2.5 1.50-4.00 MONOCYTES # (AUTO) 0.4 0.20-0.80 EOSINOPHILS # (AUTO) 0.3 0.04-0.40 BASOPHILS # (AUTO) 0.1 0.02-0.10 ADD MANUAL DIFF NO Age at Specimen Collection = a ERYTHROCYTE SEDIMENTATION RATE - 7 09:50 ERYTHROCYTE SEDIMENTATION RATE 37 mm/hr 0-15 Age at Specimen Collection = a C-REACTIVE PROTEIN - 11/21/16 09:50 hs C REACTIVE PROTEIN XXX Age at Specimen Collection = a CBC WITH AUTOMATED DIFF - 11/23/16 06:11 WHITE BLOOD COUNT 8.0 K/mm3 4.8-10.8 RED BLOOD COUNT 4.25 M/mm3 4.20-5.60 HEMOGLOBIN 10.6 g/dL 13.5-18.0 HEMATOCRIT 34.5 % 42.0-52.0 MEAN CORPUSCULAR VOLUME 81 fl 78-100 MEAN CORPUSCULAR HEMOGLOBIN 25 pg 27 -31 MEAN CORPUSCULAR HGB CONC 31 g/dL 33-3 7 RED CELL DISTRIBUTION WIDTH 21.9 % 11 .5-14.5 PLATELET COUNT 243 K/mm3 130-400 MEAN PLATELET VOLUME 9.1 fl 7.4-10.4 NEUTROPHILS % (AUTO) 50.7 % 42.0-75.2 LYMPHOCYTES % (AUTO) 37.3 % 20.0-51.0 MONOCYTES % (AUTO) 8.1 % 1.0-10.0 EOSINOPHILS % (AUTO) 3.1 % 0.0-4.0 BASOPHILS % (AUTO) 0.7 % 0.0-2.0 NEUTROPHILS # (AUTO) 4.1 1.40-6.50 LYMPHOCYTES # (AUTO) 3.0 1.50-4.00 MONOCYTES # (AUTO) 0.7 0.20-0.80 EOSINOPHILS # (AUTO) 0.3 0.04-0.40 BASOPHILS # (AUTO) 0.1 0.02-0.10 ADD MANUAL DIFF NO Age at Specimen Collection = a COMPREHENSIVE METABOLIC PANEL - 11/23/16 06:11 SODIUM 136 mmol/L 137-145 POTASSIUM 4.4 mmol/L 3.6-5.0 CHLORIDE 103 mmol/L 98-107 CARBON DIOXIDE 28 mmol/L 22-30 BLOOD UREA NITROGEN 19 mg/dL 9-20 GLUCOSE 99 mg/dL 75-110 CALCIUM 8.6 mg/dL 8.4-10.2 BILIRUBIN,TOTAL 2.2 mg/dL 0.2-1.3 ASPARTATE AMINO TRANSFERASE 31 U/L 17 -59 ALANINE AMINOTRANSFERASE 34 U/L 21-72 TOTAL PROTEIN 6.8 g/dL 6.3-8.2 ALBUMIN 3.1 g/dL 3.5-5.0 ALKP 74 U/L 38-126 BUN/CREATININE RATIO 15.5 6.0-26.0 CREATININE 1.2 mg/dL 0.8-1.5 Age at Specimen Collection = a eGFR 80 eGFR non 66 LIVER PROFILE (HEPATIC PANEL) - 11/25/16 09:12 BILIRUBIN,TOTAL 2.0 mg/dL 0.2-1.3 BILIRUBIN,DIRECT 1.9 mg/dL 0.0-0.4 ASPARTATE AMINO TRANSFERASE 21 U/L 17 -59 ALANINE AMINOTRANSFERASE 29 U/L 21-72 TOTAL PROTEIN 6.8 g/dL 6.3-8.2 ALBUMIN 3.1 g/dL 3.5-5.0 A/G RATIO 0.9 1.1-2.2 ALKP 75 U/L 38-126 BILIRUBIN UNCONJUGATED 0.1 mg/dL 0.0-0.6 Age at Specimen Collection = a CBC WITH AUTOMATED DIFF - 11/26/16 06:26 WHITE BLOOD COUNT 8.7 K/mm3 4.8-10.8 RED BLOOD COUNT 4.66 M/mm3 4.20-5.60 HEMOGLOBIN 11.9 g/dL 13.5-18.0 HEMATOCRIT 37.9 % 42.0-52.0 MEAN CORPUSCULAR VOLUME 81 fl 78-100 MEAN CORPUSCULAR HEMOGLOBIN 26 pg 27 -31 MEAN CORPUSCULAR HGB CONC 31 g/dL 33-3 7 RED CELL DISTRIBUTION WIDTH 23.4 % 11 .5-14.5 PLATELET COUNT 205 K/mm3 130-400 MEAN PLATELET VOLUME 9.9 fl 7.4-10.4 NEUTROPHILS % (AUTO) 43.7 % 42.0-75.2 LYMPHOCYTES % (AUTO) 44.2 % 20.0-51.0 MONOCYTES % (AUTO) 7.9 % 1.0-10.0 EOSINOPHILS % (AUTO) 3.2 % 0.0-4.0 BASOPHILS % (AUTO) 0.8 % 0.0-2.0 NEUTROPHILS # (AUTO) 3.8 1.40-6.50 LYMPHOCYTES # (AUTO) 3.9 1.50-4.00 MONOCYTES # (AUTO) 0.7 0.20-0.80 EOSINOPHILS # (AUTO) 0.3 0.04-0.40 BASOPHILS # (AUTO) 0.1 0.02-0.10 ADD MANUAL DIFF NO Age at Specimen Collection = a COMPREHENSIVE METABOLIC PANEL - 11/26/16 06:26 SODIUM 139 mmol/L 137-145 POTASSIUM 5.1 mmol/L 3.6-5.0 CHLORIDE 103 mmol/L 98-107 CARBON DIOXIDE 29 mmol/L 22-30 BLOOD UREA NITROGEN 22 mg/dL 9-20 GLUCOSE 86 mg/dL 75-110 CALCIUM 8.9 mg/dL 8.4-10.2 BILIRUBIN,TOTAL 2.2 mg/dL 0.2-1.3 ASPARTATE AMINO TRANSFERASE 26 U/L 17 -59 ALANINE AMINOTRANSFERASE 30 U/L 21-72 TOTAL PROTEIN 7.2 g/dL 6.3-8.2 ALBUMIN 3.2 g/dL 3.5-5.0 ALKP 79 U/L 38-126 BUN/CREATININE RATIO 15.4 6.0-26.0 CREATININE 1.4 mg/dL 0.8-1.5 Age at Specimen Collection = a eGFR 68 eGFR non 56 THYROID STIMULATING HORMONE - 11/30/16 0 5:57 THYROID STIMULATING HORMONE 4.370 uIU/mL 0.465-4.680 CBC WITH AUTOMATED DIFF - 11/30/16 05:57 WHITE BLOOD COUNT 6.5 K/mm3 4.8-10.8 RED BLOOD COUNT 4.66 M/mm3 4.20-5.60 HEMOGLOBIN 12.0 g/dL 13.5-18.0 HEMATOCRIT 38.1 % 42.0-52.0 MEAN CORPUSCULAR VOLUME 82 fl 78-100 MEAN CORPUSCULAR HEMOGLOBIN 26 pg 27 -31 MEAN CORPUSCULAR HGB CONC 32 g/dL 33-3 7 RED CELL DISTRIBUTION WIDTH 24.0 % 11 .5-14.5 PLATELET COUNT 213 K/mm3 130-400 MEAN PLATELET VOLUME 9.3 fl 7.4-10.4 NEUTROPHILS % (AUTO) 43.3 % 42.0-75.2 LYMPHOCYTES % (AUTO) 46.1 % 20.0-51.0 MONOCYTES % (AUTO) 6.2 % 1.0-10.0 EOSINOPHILS % (AUTO) 3.6 % 0.0-4.0 BASOPHILS % (AUTO) 0.6 % 0.0-2.0 NEUTROPHILS # (AUTO) 2.8 1.40-6.50 LYMPHOCYTES # (AUTO) 3.0 1.50-4.00 MONOCYTES # (AUTO) 0.4 0.20-0.80 EOSINOPHILS # (AUTO) 0.2 0.04-0.40 BASOPHILS # (AUTO) 0.0 0.02-0.10 ADD MANUAL DIFF NO Age at Specimen Collection = a COMPREHENSIVE METABOLIC PANEL - 11/30/16 05:57 SODIUM 140 mmol/L 137-145 POTASSIUM 4.0 mmol/L 3.6-5.0 CHLORIDE 105 mmol/L 98-107 CARBON DIOXIDE 25 mmol/L 22-30 BLOOD UREA NITROGEN 17 mg/dL 9-20 GLUCOSE 113 mg/dL 75-110 CALCIUM 8.8 mg/dL 8.4-10.2 BILIRUBIN,TOTAL 2.4 mg/dL 0.2-1.3 ASPARTATE AMINO TRANSFERASE 17 U/L 17 -59 ALANINE AMINOTRANSFERASE 22 U/L 21-72 TOTAL PROTEIN 7.4 g/dL 6.3-8.2 ALBUMIN 3.4 g/dL 3.5-5.0 ALKP 75 U/L 38-126 BUN/CREATININE RATIO 14.4 6.0-26.0 CREATININE 1.2 mg/dL 0.8-1.5 Age at Specimen Collection = a eGFR 80 eGFR non 66 THYROID STIMULATING HORMONE - 11/30/16 0 5:57 THYROID STIMULATING HORMONE [facility] Age at Specimen Collection = a HEPATITIS PANEL, GENERAL - 04/26/19 13:2 2 HEPATITIS A AB, TOTAL NON-REACTIVE NON- REACTIVE HEPATITIS B SURFACE ANTIBODY QL REACTIVE NON-REACTIVE HEPATITIS B SURFACE ANTIGEN NON-REACTIVE NON-REACTIVE HEPATITIS B CORE AB TOTAL NON-REACTIVE NON-REACTIVE HEPATITIS C ANTIBODY REACTIVE NON-REACT BARTOLO SIGNAL TO CUT-OFF 32.40 <1.00 HCV RNA, QUANTITATIVE REAL TIME PCR - 13:22 HCV RNA, QUANTITATIVE REAL TIME PCR <15 NOT DETECT ED IU/mL NOT DETECTED HCV RNA, QUANTITATIVE REAL TIME PCR <1.18 NO T DETECTED Log IU/mL NOT DETECTED COMMENT NRG HIV 1/2 AG AND AB W/ REFLEXES - 04/26/19 13:22 HIV AG/AB, 4TH GEN NON-REACTIVE NON-ROBYN CTIVE CBC (INCLUDES DIFF/PLT) - 05/10/19 10:30 WHITE BLOOD CELL COUNT 8.7 Thousand/uL 3 .8-10.8 RED BLOOD CELL COUNT 5.67 Million/uL 4.2 0-5.80 HEMOGLOBIN 16.6 g/dL 13.2-17.1 HEMATOCRIT 51.2 % 38.5-50.0 MCV 90.3 fL 80.0-100.0 MCH 29.3 pg 27.0-33.0 MCHC 32.4 g/dL 32.0-36.0 RDW 13.2 % 11.0-15.0 PLATELET COUNT 214 Thousand/uL 140-400 MPV 10.1 fL 7.5-12.5 ABSOLUTE NEUTROPHILS 4637 cells/uL 1500- 7800 ABSOLUTE LYMPHOCYTES 2967 cells/uL 850-3 900 ABSOLUTE MONOCYTES 774 cells/uL 200-950 ABSOLUTE EOSINOPHILS 252 cells/uL 15-500 ABSOLUTE BASOPHILS 70 cells/uL 0-200 NEUTROPHILS 53.3 % NRG LYMPHOCYTES 34.1 % NRG MONOCYTES 8.9 % NRG EOSINOPHILS 2.9 % NRG BASOPHILS 0.8 % NRG TRACY NORMAN VIRUS ANTIBODY PANEL - 04/19 07/05 10:30 EBV VIRAL CAPSID AG (VCA) AB (IGM) <36.00 U/mL NRG EBV VIRAL CAPSID AG (VCA) AB (IGG) 515.00 U/mL NRG EBV NUCLEAR AG (EBNA) AB (IGG) 431.00 U/mL NRG INTERPRETATION: NRG Encounters ACCT No. Visit Date/Time Discharge Status Pt. Type Provider Facility Loc./Unit Complaint [id number] 03/07/2019 09:00:00 03/07/2019 23:5 9:59 CLS Outpatient [id number] 10/19/2016 14:57:00 7 11:40:00 DIS Inpatient Yaz Mckeon PA-C [facility] MED/SURG [facility] [id number] 08/27/2016 12:34:00 7 18:38:00 DIS Inpatient Yaz Mckeon PA-C [facility] MED/SURG BD [id number] 10/15/2013 22:31:00 4 23:17:00 DIS Emergency [id number] 03/28/2012 13:50:00 03/28/20 12 15:22:00 DIS Emergency Suhail Mcgowan MD [facility] on [address] [place] [id number] 03/13/2012 15:56:00 03/13/20 12 17:20:00 DIS Emergency Lachelle SULTANA MD, Emiliano Keith [facility] on [address] [place] [id number] 10/30/2019 12:49:00 020 13:42:00 DIS Emergency INESSA BROWN MD [facility] ER R LEG INJ [id number] 05/26/2013 11:13:00 014 11:48:00 DIS Emergency CJ PALUMBO, FRANKIE R [facility] ER PRESCRIPTION REFILL [id number] 04/03/2018 12:47:55 Document Registration [id number] 03/20/2018 08:40:42 Document Registration [id number] 03/13/2018 14:56:31 Document Registration [id number] 08/18/2017 07:54:17 Document Registration [id number] 01/08/2019 10:11:00 019 11:05:00 DIS Emergency Lachelle PALUMBO, Emiliano Keith [facility] [id number] 03/28/2012 20:45:00 012 22:50:00 DIS Emergency Singh PALUMBO, [facility] [id number] 01/09/2019 04:18:39 ACT Document Registration [id number] 10/14/2016 14:52:18 10/14/2016 23:59: 59 CLS Outpatient Dante Hendricks [id number] 2016 11:11:33 2016 23:59: 59 CLS Outpatient Dante Hendricks [id number] 09/16/2016 15:18:47 09/16/2016 23:59: 59 CLS Outpatient Dante Hendricks [id number] 09/06/2016 11:46:08 09/06/2016 23:59: 59 CLS Outpatient Santana Shields [id number] 08/09/2016 16:58:04 08/09/2016 23:59: 59 CLS Outpatient Santana Shields [id number] 05/08/2015 12:55:00 05/08/2015 23:59: 59 CLS Outpatient Clint Mauricio [id number] 03/10/2015 17:07:51 03/10/2015 23:59: 59 CLS Outpatient Dante Hendricks [id number] 11/25/2014 21:54:34 11/25/2014 23:59: 59 CLS Outpatient Dash Hernandez [id number] 11/25/2014 21:53:10 11/25/2014 23:59: 59 CLS Outpatient DialRemberto lemus [id number] 01/02/2014 11:38:56 01/02/2014 23:59: 59 CLS Outpatient Molly Myers [id number] 06/06/2013 10:49:16 06/06/2013 23:59: 59 CLS Outpatient Molly Myers [id number] 06/05/2013 15:29:43 06/05/2013 23:59: 59 CLS Outpatient Dante Hendricks [id number] 05/10/2019 09:45:00 Document Registration [id number] 04/26/2019 10:30:00 Document Registration [id number] 10/17/2018 13:20:00 10/17/2018 23:59: 59 CLS Outpatient CANDY FRENCH CH [id number] 12/01/2016 08:48:00 7 23:59:59 CLS Outpatient Ditto, Christian E [facility] [id number] 11/22/2016 09:04:00 7 23:59:59 CLS Outpatient OTHER, PROVIDER [facility] [id number] 11/05/2016 10:29:00 7 23:59:59 CLS Outpatient Ditto, Christian E [facility] [id number] 10/25/2016 10:17:00 7 23:59:59 CLS Outpatient Letha Mina [facility] [id number] 10/24/2016 09:43:00 7 23:59:59 CLS Outpatient Duglas Zendejas [facility] [id number] 09/08/2016 12:00:00 7 23:59:59 CLS Outpatient ALDO, CUBA [facility] AIV FOLLOW UP PHONE CALL [id number] 08/30/2016 12:10:00 Document Registration [id number] 10/19/2016 17:15:00 Document Registration [id number] 08/27/2016 15:00:00 Document Registration [id number] 08/23/2016 10:05:00 Document Registration
== END 2019-10-30 13:42 | disposition home or self-care (01) ==
LOC: EDUNIT# 12:48 → ER 12:49
DX: T24.231A Burn of second degree of right lower leg, initial encounter (principal); R00.0 Tachycardia, unspecified; F32.9 Major depressive disorder, single episode, unspecified; M41.9 Scoliosis, unspecified; Z88.1 Allergy status to other antibiotic agents; Z91.030 Bee allergy status; V39.9XXA Occupant (driver) (passenger) of three-wheeled motor vehicle injured in unspecified traffic accident, initial encounter
CPT/HCPCS: 93005